=== PATIENT | male | born 1965 | race Caucasian/White ===

== ENCOUNTER 2023-09-02 08:58 | Inpatient (IN) ==
[2023-09-02 09:33] LABS: Base Excess VBG 4.7 mEq/L; HCO3 VBG 31 mmol/L; Oxygen Saturation VBG < 60.0 %; PCO2 VBG 54 mmHg (38-50); PO2 VBG < 20 mmHg; pH VBG 7.37 (7.36-7.41)
[2023-09-02] MEDS ORDERED: PIPERACILLIN/TAZOBACTAM 4.5 GM/100 ML BAG IV ONE (09:33)
[2023-09-02] MEDS ORDERED: VANCOMYCIN CONSULT ACTIVE PRN (09:33)
[2023-09-02] MEDS ORDERED: SODIUM CHLORIDE 0.9% 1,000 ML IV ONE ×2 (09:33→10:19)
[2023-09-02] MEDS ORDERED: VANCOMYCIN HCL 1,250 MG in SODIUM CHLORIDE 0.9% 500 ML IV ONE (09:33)
--- NOTE | 2023-09-02 09:36 | XRay Report ---
XR chest 1V portable CLINICAL HISTORY: Sepsis COMPARISON STUDY: Chest radiograph May 07, 2021. FINDINGS: No pneumothorax or pleural effusion is present. Cardiac size is normal. Mediastinal contour s are normal. Linear retrocardiac densities are noted. There may be subtle right upper lung airspace opacities. No evidence for overt pulmonary edema. Mild asymmetric interstitial thickening within the right lung is likely technical. IMPRESSION: 1. Possible subtle right upper lung airspace opacities and slight asymmetric interstitial thickening within the right lung. The findings are likely technical however an infectious process cannot be excl uded. Radiographic follow-up is recommended. 2. Linear retrocardiac opacities which favor atelectasis however can be assessed on follow-up chest r adiograph. ACT 112: Negative or not required by law. Electronically signed by: Shay Souza M.D. 09/02/2023 9:34 AM
--- NOTE | 2023-09-02 09:37 | CT Scan Report ---
CT OF THE HEAD WITHOUT CONTRAST CLINICAL HISTORY: Altered mental status. COMPARISON STUDY: No previous studies for comparison. CT DOSE: 1250.21 mGy.cm TECHNIQUE: Helical axial images of the head were obtained without IV contrast. Automated exposure con trol was utilized for the study. A dose lowering technique was utilized adhering to the principles o f ALARA. FINDINGS: This exam is mildly compromised by motion artifact. Multifocal white matter hypodensities a re present. No acute intracranial hemorrhage, midline shift or mass effect is present. The ventricula r system is unremarkable. The basal cisterns are patent. No extra-axial collections are present. Ther e are no findings to suggest acute dural sinus thrombosis or acute territorial infarct. No significan t calvarial abnormalities are present. Visualized portions of the sinuses and mastoid air cells are c lear. IMPRESSION: 1. No acute intracranial hemorrhage or mass effect. Exam mildly compromised by motion artifact. 2. Multifocal white matter hypodensities. These are nonspecific but statistically reflect small vesse l disease. ACT 112: Negative or not required by law. Electronically signed by: Shay Souza M.D. 09/02/2023 9:36 AM
--- NOTE | 2023-09-02 09:41 | Emergency Department Note ---
Impression & Plan Pneumonia, Hypoxia, Acute alteration in mental status, Hypomagnesemia ED Provider Note NAME: MARY LARA AGE: 58 SEX: M : 1965 ARRIVES VIA: Ambulance INFORMANT: Patient, EMS ED PROVIDER(S): Luisito Welch DO CHIEF COMPLAINT: Altered mental status HPI: The patient is a 58-year-old male who presented to the emergency department for an evaluation of altered mental status. The patient is currently at [facility] for inpatient rehab. The patient had a cardiac arrest and was at an outside facility. He had a subdural hematoma. The patient is a history of paroxysmal atrial fibrillation but has been off his blood thinners ever since the injury. He also has a history of diabetes. He was noted to have fever and low blood sugar over the course last 24 hours. He was sent to the emergency department from [facility] for further evaluation. The patient does not help very much with history and is not able to answer questions very well at this time. ROS: See above HPI for pertinent positives & negatives. A total of 10 systems reviewed and were otherwise negative. PAST MEDICAL HISTORY: See Below PAST SURGICAL HISTORY: See Below FAMILY HISTORY: See Below SOCIAL HISTORY: See Below HOME MEDICATIONS: See Below ALLERGIES: See Below VITALS: See Below PHYSICAL EXAMINATION: GENERAL: Patient is awake to loud verbal commands. He does not answer questions. He does not follow commands well. EYES: The conjunctivae are clear. The pupils are round and reactive. EARS, NOSE, MOUTH AND THROAT: The nose is without any evidence of any deformity. Mucous membranes are dry. NECK: The neck is nontender and supple. RESPIRATORY: Diminished breath sounds are noted in right lung field. There were rales in the right lung field. There is mild retractions noted. CARDIOVASCULAR: Regular rate and rhythm noted there no murmurs rubs or gallops normal S1 normal S2. GASTROINTESTINAL: The abdomen is soft. Abdomen is nontender. MUSCULOSKELETAL/EXTREMITIES: There is no evidence of gross deformity full range of motion is noted in the hips and shoulders. SKIN: Skin is warm and dry. There is no significant pedal edema NEUROLOGIC: Patient is awake to loud verbal commands. He does localize painful stimuli. He does not follow commands or answer questions. I cannot assess orientation at this time. MEDICAL DECISION MAKING: The patient is a 58-year-old male who presented to the emergency department from [facility] for an evaluation of altered mental status. The patient had a reported fever. He had episodes of hypotension. The patient appeared have signs of pneumonia on chest x-ray. This would fit his physical exam as well as his oxygen saturation. He was started on empiric antibiotics. He was also found to have urinary tract infection. He was treated with IV fluids. Blood pressure responded favorably. I discussed the patient's laboratory and radiographic studies [facility]. [facility] have agreed to evaluate the patient in the emergency department for further management and disposition. Triage Nursing notes reviewed. Prior medical records reviewed Vital Signs: reviewed and remarkable for initial hypotension and hypoxia. Differential diagnosis: Viral syndrome, otitis, pharyngitis, pneumonia, influenza, meningitis, urinary tract infection, sepsis, bacteremia, as well as other pathologies. ER treatment provided: See below Diagnostics interpreted by me: ECG: EKG was obtained in the emergency department. My interpretation is normal sinus rhythm at 99 bpm. Right bundle branch block pattern was noted. There is no ectopy. This was compared to a tracing from April 27, 2021. The bundle branch block is new. Cardiac Monitoring: An order was placed for continuous cardiac monitoring. The monitor shows a rate of 97 bpm with sinus rhythm. Laboratory studies: As stated above and show below. Imaging studies: See below. Radiographic imaging was reviewed by myself Consultation(s): I discussed this case with Lilly who [facility] ED COURSE: Procedures: none Critical Care: I have personally spent greater than 45 minutes of critical care time in the direct management of this patient. This includes bedside care, interpretation of diagnostic studies, and testing, discussion with consultants, patient, and family members, and other required patient management activities. This 45 minutes is in excess of all separately billable procedures. Past Med/Surg History Medical History Back pain Bilateral leg pain Diabetes mellitus Drug-seeking behavior Neuropathy Neuropathy Sciatica Spinal stenosis Surgical History History of back surgery S/P lumbar spine operation (01/17/15) Social History Smoking Status: Unknown if ever smoked Preferred Language: Ghanaian Feels Safe at Home: Yes Allergies Allergies Allergy/AdvReac Type Severity Reaction Status Date / Time ketorolac Allergy Severe seizure Verified 09/02/23 12:27 propoxyphene Allergy Severe didn't Verified 09/02/23 12:27 wake up until next day tramadol Allergy Severe seizure Verified 09/02/23 12:27 acetaminophen Allergy Unknown Unknown Unverified 09/02/23 12:27 [From Darvocet-N 100] meperidine Allergy Unknown loose bn Verified 09/02/23 12:27 oxycodone AdvReac Intermediate face Verified 09/02/23 12:27 blotchy, nausea Home Meds Home Medications Medication Instructions Recorded Confirmed insulin glargine 100 unit/mL (3 20 unit subcut QAM 04/27/21 09/02/23 mL) subcutaneous pen (Lantus Solostar U-100 Insulin) Dextrose D50 See Rx Instructions .Route .COMPLEX 09/02/23 09/02/23 acetaminophen 325 mg tablet 650 mg PO Q4H PRN Pain 09/02/23 09/02/23 (Tylenol) albuterol sulfate 90 mcg/actuation 2 inh inhalation Q6H PRN Wheezing 09/02/23 09/02/23 aerosol inhaler aspirin 81 mg chewable tablet 81 mg PO DAILY 09/02/23 09/02/23 bisacodyl 10 mg rectal suppository 10 mg MT DAILY PRN Constipation 09/02/23 09/02/23 cyanocobalamin (vitamin B-12) 1,000 mcg PO DAILY 09/02/23 09/02/23 1,000 mcg tablet (Vitamin B-12) dextrose 40 % oral gel (Glucose 1 ea PO ONCE PRN Hypoglycemia 09/02/23 09/02/23 Gel) docusate sodium 50 mg/5 mL oral 100 mg PO BID 09/02/23 09/02/23 liquid enoxaparin 40 mg/0.4 mL 40 mg subcut DAILY 09/02/23 09/02/23 subcutaneous syringe (Lovenox) folic acid 1 mg tablet 1 mg PO DAILY 09/02/23 09/02/23 gabapentin 800 mg tablet 800 mg PO QID 09/02/23 09/02/23 glucagon 1 mg solution for 1 mg subcut . INDICATED PRN 09/02/23 09/02/23 injection Hypoglycemia insulin regular human 100 unit/mL 1 sliding scale dose subcut 09/02/23 09/02/23 injection solution (Humulin R USEASDIRECTD Regular U-100 Insulin) levetiracetam 500 mg/5 mL (5 mL) 500 mg PO Q12H 09/02/23 09/02/23 oral solution losartan 25 mg tablet 25 mg PO DAILY 09/02/23 09/02/23 magnesium hydroxide 400 mg/5 mL 2,400 mg PO DAILY PRN Constipation 09/02/23 09/02/23 oral suspension (Milk of Magnesia) metoprolol tartrate 50 mg tablet 50 mg PO Q12H 09/02/23 09/02/23 ondansetron HCl 4 mg tablet 4 mg PO Q4H PRN nausea or vomiting 09/02/23 09/02/23 oxycodone 15 mg tablet 30 mg PO Q12H 09/02/23 09/02/23 polyethylene glycol 3350 17 gram 17 g PO .LUNCH TIME PRN 09/02/23 09/02/23 oral powder packet (Miralax) constipation sennosides 8.6 mg-docusate sodium 1 tab-cap PO .LUNCH TIME PRN 09/02/23 09/02/23 50 mg tablet (Senokot-S) Constipation sodium phosphates 19 gram-7 118 ml MT DAILY PRN Constipation 09/02/23 09/02/23 gram/118 mL enema (Fleet Enema) Previous Rx's Medication Instructions Recorded naloxone 4 mg/actuation nasal 1 spray intranasal DIRECTED #2 04/27/21 spray (Narcan) ea Results & Data (ED) Vital Signs Vital Signs - 24 hr 09/02/23 09:06 09/02/23 09:09 09/02/23 09:22 Temperature 37.5 C Temperature Source Oral Pulse Rate 103 H 100 H 105 H Pulse Rate [Right Finger] Respiratory Rate 14 18 Respiratory Effort / Characteristics Respiratory Depth Shallow Blood Pressure 116/68 Blood Pressure [Left Arm] Blood Pressure Mean 84 Blood Pressure Mean [Left Arm] Pulse Oximetry 95 94 Oxygen Delivery Method Nasal Cannula Nasal Cannula Oxygen Flow Rate 4 4 Sepsis New/Unexplained Change in Mental Status Yes Sepsis Action Taken by Nursing Physician Notified 09/02/23 09:45 09/02/23 09:55 09/02/23 10:00 Temperature Temperature Source Pulse Rate Pulse Rate [Right Finger] 99 H 94 H Respiratory Rate 16 12 Respiratory Effort / Characteristics Spontaneous Non-Labored Spontaneous Respiratory Depth Normal Normal Blood Pressure Blood Pressure [Left Arm] 90/62 L 96/66 L Blood Pressure Mean Blood Pressure Mean [Left Arm] 71 76 Pulse Oximetry 95 97 98 Oxygen Delivery Method Nasal Cannula Nasal Cannula Nasal Cannula Oxygen Flow Rate 4 4 4 Sepsis New/Unexplained Change in Mental Status Sepsis Action Taken by Nursing 09/02/23 10:15 09/02/23 10:30 Temperature Temperature Source Pulse Rate Pulse Rate [Right Finger] 93 H 93 H Respiratory Rate 12 14 Respiratory Effort / Characteristics Spontaneous Spontaneous Respiratory Depth Blood Pressure Blood Pressure [Left Arm] 103/75 90/63 L Blood Pressure Mean Blood Pressure Mean [Left Arm] 84 72 Pulse Oximetry 98 98 Oxygen Delivery Method Nasal Cannula Nasal Cannula Oxygen Flow Rate 4 4 Sepsis New/Unexplained Change in Mental Status Sepsis Action Taken by [facility] Medications Current Medication List: was personally reviewed by me Laboratory Data Attestation: I reviewed the patient's lab results. 09/02/23 09:13 09/02/23 09:13 Lab Results 09/02/23 09/02/23 09/02/23 Range/Units 09:03 09:13 09:13 WBC 14.56 H (4.8-10.8) K/ul RBC 2.83 L (4.70-6.10) M/uL Hgb 10.9 L (14.0-18.0) g/dl Hct 28.7 L (42.0-52.0) % MCV 101.4 H (80.0-100.0) fL MCH 38.5 H (25.0-34.0) pg MCHC 38.0 H (32.0-36.0) g/dL RDW Std Deviation 46.6 H (36.4-46.3) fL RDW Coeff of Kaelyn 14.5 (11.5-14.5) % Plt Count 382 (130-400) K/uL MPV 10.7 (9.4-12.4) fL Immature Gran % (Auto) 0.5 % Neut % (Auto) 80.4 % Lymph % (Auto) 11.3 % [place] % (Auto) 6.9 % Eos % (Auto) 0.2 % Baso % (Auto) 0.7 % Neut # (Auto) 11.72 H (1.40-6.50) K/uL Lymph # (Auto) 1.64 (1.20-3.40) K/uL [place] # (Auto) 1.00 H (0.11-0.59) K/uL Eos # (Auto) 0.03 (0.00-0.50) K/uL Baso # (Auto) 0.10 (0.00-0.20) K/uL Immature Gran # (Auto) 0.07 (0.01-0.20) K/uL Stomatocytes 1+ PT 11.5 (9.0-12.0) Seconds INR 1.1 (0.9-1.1) APTT 25.3 (21.0-31.0) Seconds PTT Ratio 0.9 VBG pH (7.36-7.41) VBG pCO2 (38-50) mmHg VBG pO2 mmHg VBG HCO3 mmol/L VBG O2 Saturation % VBG Base Excess mEq/L Sodium (136-145) mmol/L Potassium (3.5-5.1) mmol/L Chloride (98-107) mmol/L Carbon Dioxide (21-32) mmol/L Anion Gap (3-11) BUN (6-23) mg/dl Creatinine (0.6-1.4) mg/dl Est Cr Clr Drug Dosing ml/min Est GFR ( Amer) ml/min Est GFR (Non-Af Amer) ml/min BUN/Creatinine Ratio (10-20) Glucose (70-99(Fasting)) mg/dl POC Glucose 112 H (70-99) mg/dl Lactate (0.4-2.0) mmol/L Calcium (8.6-10.3) mg/dl Magnesium (1.7-2.4) mg/dl Total Bilirubin (0.2-1.0) mg/dl Direct Bilirubin (0-0.2) mg/dl AST (13-39) U/L ALT (7-52) U/L Alkaline Phosphatase (34-104) U/L Troponin I High Sens (0-20) pg/ml B-Natriuretic Peptide (0-100) pg/ml Total Protein (6.0-8.3) gm/dl Albumin (3.4-5.0) gm/dl Procalcitonin (0-0.5) ng/ml Urine Color Urine Appearance (Clear) Urine pH (4.5-7.5) Ur Specific [place] (1.000-1.030) Urine Protein (Negative) Urine Glucose (UA) (Negative) Urine Ketones (Negative) Urine Blood (Negative) Urine Nitrite (Negative) Urine Bilirubin (Negative) Urine Urobilinogen (Negative) Ur Leukocyte Esterase (Negative) Urine WBC (Auto) (0-5) /hpf Urine RBC (Auto) (0-4) /hpf U Hyaline Cast (Auto) (0-5) /lpf U Epithel Cells (Auto) (0-5) /lpf Urine Bacteria (Auto) (Negative) Urine Yeast (None Prsent) Adenovirus (PCR) (NotDetected) B. pertussis DNA (PCR) (NotDetected) B.parapertussis DNA PCR (NotDetected) C. pneumoniae DNA (PCR) (NotDetected) Coronavirus OC43 (PCR) (NotDetected) Coronavirus HKU1 (PCR) (NotDetected) Coronavirus 229E (PCR) (NotDetected) SARS-CoV-2 (PCR) (NotDetected) Coronavirus NL63 (PCR) (NotDetected) Human Metapneumovir PCR (NotDetected) Influenza Type A (PCR) (NotDetected) Influenza Type B (PCR) (NotDetected) M. pneumoniae (PCR) (NotDetected) Parainfluenza 1 (PCR) (NotDetected) Parainfluenza 2 (PCR) (NotDetected) Parainfluenza 3 (PCR) (NotDetected) Parainfluenza 4 (PCR) (NotDetected) RSV (PCR) (NotDetected) Entero/Rhino (PCR) (NotDetected) 09/02/23 09/02/23 09/02/23 Range/Units 09:13 09:13 09:13 WBC (4.8-10.8) K/ul RBC (4.70-6.10) M/uL Hgb (14.0-18.0) g/dl Hct (42.0-52.0) % MCV (80.0-100.0) fL MCH (25.0-34.0) pg MCHC (32.0-36.0) g/dL RDW Std Deviation (36.4-46.3) fL RDW Coeff of Kaelyn (11.5-14.5) % Plt Count (130-400) K/uL MPV (9.4-12.4) fL Immature Gran % (Auto) % Neut % (Auto) % Lymph % (Auto) % [place] % (Auto) % Eos % (Auto) % Baso % (Auto) % Neut # (Auto) (1.40-6.50) K/uL Lymph # (Auto) (1.20-3.40) K/uL [place] # (Auto) (0.11-0.59) K/uL Eos # (Auto) (0.00-0.50) K/uL Baso # (Auto) (0.00-0.20) K/uL Immature Gran # (Auto) (0.01-0.20) K/uL Stomatocytes PT (9.0-12.0) Seconds INR (0.9-1.1) APTT (21.0-31.0) Seconds PTT Ratio VBG pH (7.36-7.41) VBG pCO2 (38-50) mmHg VBG pO2 mmHg VBG HCO3 mmol/L VBG O2 Saturation % VBG Base Excess mEq/L Sodium 137 (136-145) mmol/L Potassium 4.8 (3.5-5.1) mmol/L Chloride 103 (98-107) mmol/L Carbon Dioxide 29 (21-32) mmol/L Anion Gap 5 (3-11) BUN 32 H (6-23) mg/dl Creatinine 1.20 (0.6-1.4) mg/dl Est Cr Clr Drug Dosing 55.6 ml/min Est GFR ( Amer) 75.7 ml/min Est GFR (Non-Af Amer) 65.3 ml/min BUN/Creatinine Ratio 26.7 H (10-20) Glucose 104 H (70-99(Fasting)) mg/dl POC Glucose (70-99) mg/dl Lactate (0.4-2.0) mmol/L Calcium 9.3 (8.6-10.3) mg/dl Magnesium 1.6 L (1.7-2.4) mg/dl Total Bilirubin 0.7 (0.2-1.0) mg/dl Direct Bilirubin 0.3 H (0-0.2) mg/dl AST 39 (13-39) U/L ALT 32 (7-52) U/L Alkaline Phosphatase 318 H (34-104) U/L Troponin I High Sens 17.3 (0-20) pg/ml B-Natriuretic Peptide 62 (0-100) pg/ml Total Protein 8.0 (6.0-8.3) gm/dl Albumin 4.0 (3.4-5.0) gm/dl Procalcitonin 0.42 (0-0.5) ng/ml Urine Color Urine Appearance (Clear) Urine pH (4.5-7.5) Ur Specific [place] (1.000-1.030) Urine Protein (Negative) Urine Glucose (UA) (Negative) Urine Ketones (Negative) Urine Blood (Negative) Urine Nitrite (Negative) Urine Bilirubin (Negative) Urine Urobilinogen (Negative) Ur Leukocyte Esterase (Negative) Urine WBC (Auto) (0-5) /hpf Urine RBC (Auto) (0-4) /hpf U Hyaline Cast (Auto) (0-5) /lpf U Epithel Cells (Auto) (0-5) /lpf Urine Bacteria (Auto) (Negative) Urine Yeast (None Prsent) Adenovirus (PCR) (NotDetected) B. pertussis DNA (PCR) (NotDetected) B.parapertussis DNA PCR (NotDetected) C. pneumoniae DNA (PCR) (NotDetected) Coronavirus OC43 (PCR) (NotDetected) Coronavirus HKU1 (PCR) (NotDetected) Coronavirus 229E (PCR) (NotDetected) SARS-CoV-2 (PCR) (NotDetected) Coronavirus NL63 (PCR) (NotDetected) Human Metapneumovir PCR (NotDetected) Influenza Type A (PCR) (NotDetected) Influenza Type B (PCR) (NotDetected) M. pneumoniae (PCR) (NotDetected) Parainfluenza 1 (PCR) (NotDetected) Parainfluenza 2 (PCR) (NotDetected) Parainfluenza 3 (PCR) (NotDetected) Parainfluenza 4 (PCR) (NotDetected) RSV (PCR) (NotDetected) Entero/Rhino (PCR) (NotDetected) 09/02/23 09/02/23 09/02/23 Range/Units 09:14 09:14 09:14 WBC (4.8-10.8) K/ul RBC (4.70-6.10) M/uL Hgb (14.0-18.0) g/dl Hct (42.0-52.0) % MCV (80.0-100.0) fL MCH (25.0-34.0) pg MCHC (32.0-36.0) g/dL RDW Std Deviation (36.4-46.3) fL RDW Coeff of Kaelyn (11.5-14.5) % Plt Count (130-400) K/uL MPV (9.4-12.4) fL Immature Gran % (Auto) % Neut % (Auto) % Lymph % (Auto) % [place] % (Auto) % Eos % (Auto) % Baso % (Auto) % Neut # (Auto) (1.40-6.50) K/uL Lymph # (Auto) (1.20-3.40) K/uL [place] # (Auto) (0.11-0.59) K/uL Eos # (Auto) (0.00-0.50) K/uL Baso # (Auto) (0.00-0.20) K/uL Immature Gran # (Auto) (0.01-0.20) K/uL Stomatocytes PT (9.0-12.0) Seconds INR (0.9-1.1) APTT (21.0-31.0) Seconds PTT Ratio VBG pH 7.37 (7.36-7.41) VBG pCO2 54 H (38-50) mmHg VBG pO2 < 20 mmHg VBG HCO3 31 mmol/L VBG O2 Saturation < 60.0 % VBG Base Excess 4.7 mEq/L Sodium (136-145) mmol/L Potassium (3.5-5.1) mmol/L Chloride (98-107) mmol/L Carbon Dioxide (21-32) mmol/L Anion Gap (3-11) BUN (6-23) mg/dl Creatinine (0.6-1.4) mg/dl Est Cr Clr Drug Dosing ml/min Est GFR ( Amer) ml/min Est GFR (Non-Af Amer) ml/min BUN/Creatinine Ratio (10-20) Glucose (70-99(Fasting)) mg/dl POC Glucose (70-99) mg/dl Lactate 1.8 (0.4-2.0) mmol/L Calcium (8.6-10.3) mg/dl Magnesium (1.7-2.4) mg/dl Total Bilirubin (0.2-1.0) mg/dl Direct Bilirubin (0-0.2) mg/dl AST (13-39) U/L ALT (7-52) U/L Alkaline Phosphatase (34-104) U/L Troponin I High Sens (0-20) pg/ml B-Natriuretic Peptide (0-100) pg/ml Total Protein (6.0-8.3) gm/dl Albumin (3.4-5.0) gm/dl Procalcitonin (0-0.5) ng/ml Urine Color Urine Appearance (Clear) Urine pH (4.5-7.5) Ur Specific [place] (1.000-1.030) Urine Protein (Negative) Urine Glucose (UA) (Negative) Urine Ketones (Negative) Urine Blood (Negative) Urine Nitrite (Negative) Urine Bilirubin (Negative) Urine Urobilinogen (Negative) Ur Leukocyte Esterase (Negative) Urine WBC (Auto) (0-5) /hpf Urine RBC (Auto) (0-4) /hpf U Hyaline Cast (Auto) (0-5) /lpf U Epithel Cells (Auto) (0-5) /lpf Urine Bacteria (Auto) (Negative) Urine Yeast (None Prsent) Adenovirus (PCR) Not Detected (NotDetected) B. pertussis DNA (PCR) Not Detected (NotDetected) B.parapertussis DNA PCR Not Detected (NotDetected) C. pneumoniae DNA (PCR) Not Detected (NotDetected) Coronavirus OC43 (PCR) Not Detected (NotDetected) Coronavirus HKU1 (PCR) Not Detected (NotDetected) Coronavirus 229E (PCR) Not Detected (NotDetected) SARS-CoV-2 (PCR) Not Detected (NotDetected) Coronavirus NL63 (PCR) Not Detected (NotDetected) Human Metapneumovir PCR Not Detected (NotDetected) Influenza Type A (PCR) Not Detected (NotDetected) Influenza Type B (PCR) Not Detected (NotDetected) M. pneumoniae (PCR) Not Detected (NotDetected) Parainfluenza 1 (PCR) Not Detected (NotDetected) Parainfluenza 2 (PCR) Not Detected (NotDetected) Parainfluenza 3 (PCR) Not Detected (NotDetected) Parainfluenza 4 (PCR) Not Detected (NotDetected) RSV (PCR) Not Detected (NotDetected) Entero/Rhino (PCR) Not Detected (NotDetected) 09/02/23 Range/Units 09:27 WBC (4.8-10.8) K/ul RBC (4.70-6.10) M/uL Hgb (14.0-18.0) g/dl Hct (42.0-52.0) % MCV (80.0-100.0) fL MCH (25.0-34.0) pg MCHC (32.0-36.0) g/dL RDW Std Deviation (36.4-46.3) fL RDW Coeff of Kaelyn (11.5-14.5) % Plt Count (130-400) K/uL MPV (9.4-12.4) fL Immature Gran % (Auto) % Neut % (Auto) % Lymph % (Auto) % [place] % (Auto) % Eos % (Auto) % Baso % (Auto) % Neut # (Auto) (1.40-6.50) K/uL Lymph # (Auto) (1.20-3.40) K/uL [place] # (Auto) (0.11-0.59) K/uL Eos # (Auto) (0.00-0.50) K/uL Baso # (Auto) (0.00-0.20) K/uL Immature Gran # (Auto) (0.01-0.20) K/uL Stomatocytes PT (9.0-12.0) Seconds INR (0.9-1.1) APTT (21.0-31.0) Seconds PTT Ratio VBG pH (7.36-7.41) VBG pCO2 (38-50) mmHg VBG pO2 mmHg VBG HCO3 mmol/L VBG O2 Saturation % VBG Base Excess mEq/L Sodium (136-145) mmol/L Potassium (3.5-5.1) mmol/L Chloride (98-107) mmol/L Carbon Dioxide (21-32) mmol/L Anion Gap (3-11) BUN (6-23) mg/dl Creatinine (0.6-1.4) mg/dl Est Cr Clr Drug Dosing ml/min Est GFR ( Amer) ml/min Est GFR (Non-Af Amer) ml/min BUN/Creatinine Ratio (10-20) Glucose (70-99(Fasting)) mg/dl POC Glucose (70-99) mg/dl Lactate (0.4-2.0) mmol/L Calcium (8.6-10.3) mg/dl Magnesium (1.7-2.4) mg/dl Total Bilirubin (0.2-1.0) mg/dl Direct Bilirubin (0-0.2) mg/dl AST (13-39) U/L ALT (7-52) U/L Alkaline Phosphatase (34-104) U/L Troponin I High Sens (0-20) pg/ml B-Natriuretic Peptide (0-100) pg/ml Total Protein (6.0-8.3) gm/dl Albumin (3.4-5.0) gm/dl Procalcitonin (0-0.5) ng/ml Urine Color Yellow Urine Appearance Cloudy A (Clear) Urine pH 5.5 (4.5-7.5) Ur Specific [place] 1.017 (1.000-1.030) Urine Protein Negative (Negative) Urine Glucose (UA) Negative (Negative) Urine Ketones Negative (Negative) Urine Blood Trace H (Negative) Urine Nitrite Negative (Negative) Urine Bilirubin Negative (Negative) Urine Urobilinogen Negative (Negative) Ur Leukocyte Esterase 3+ H (Negative) Urine WBC (Auto) >30 H (0-5) /hpf Urine RBC (Auto) 0-4 (0-4) /hpf U Hyaline Cast (Auto) 1-5 (0-5) /lpf U Epithel Cells (Auto) 5-10 H (0-5) /lpf Urine Bacteria (Auto) Negative (Negative) Urine Yeast Budding A (None Prsent) Adenovirus (PCR) (NotDetected) B. pertussis DNA (PCR) (NotDetected) B.parapertussis DNA PCR (NotDetected) C. pneumoniae DNA (PCR) (NotDetected) Coronavirus OC43 (PCR) (NotDetected) Coronavirus HKU1 (PCR) (NotDetected) Coronavirus 229E (PCR) (NotDetected) SARS-CoV-2 (PCR) (NotDetected) Coronavirus NL63 (PCR) (NotDetected) Human Metapneumovir PCR (NotDetected) Influenza Type A (PCR) (NotDetected) Influenza Type B (PCR) (NotDetected) M. pneumoniae (PCR) (NotDetected) Parainfluenza 1 (PCR) (NotDetected) Parainfluenza 2 (PCR) (NotDetected) Parainfluenza 3 (PCR) (NotDetected) Parainfluenza 4 (PCR) (NotDetected) RSV (PCR) (NotDetected) Entero/Rhino (PCR) (NotDetected) Administered Medications Sodium Chloride (Nss) 1,000 mls @ 80 mls/hr IV .[id number] JOSÉ MIGUEL Stop: 09/03/23 12:44 Last Admin: 09/02/23 12:17 Dose: 80 mls/hr Documented By: WALT Discontinued Medications Sodium Chloride (Nss) 1,000 mls @ 999 mls/hr IV .Q1H1M ONE Stop: 09/02/23 10:33 Last Infusion: 09/02/23 11:26 Dose: 0 mls/hr Documented By: Admin: 09/02/23 09:48 Dose: 999 mls/hr Documented By: WALT Piperacillin Sod/Tazobactam Sod (Zosyn) 4.5 gm in 100 mls @ 200 mls/hr IV NOW ONE Stop: 09/02/23 10:02 Last Infusion: 09/02/23 10:38 Dose: 0 mls/hr Documented By: Admin: 09/02/23 10:04 Dose: 200 mls/hr Documented By: WALT Vancomycin HCl 1,250 mg/ (Sodium Chloride) 525 mls @ 200 mls/hr IV NOW ONE Stop: 09/02/23 12:10 Last Admin: 09/02/23 09:49 Dose: 200 mls/hr Documented By: WALT Magnesium Sulfate/Dextrose (Magnesium Sulfate / D5w) 1 gm in 100 mls @ 100 mls/hr IV NOW STA Stop: 09/02/23 11:19 Last Infusion: 09/02/23 11:46 Dose: 0 mls/hr Documented By: Admin: 09/02/23 10:33 Dose: 100 mls/hr Documented By: WALT Sodium Chloride (Nss) 1,000 mls @ 999 mls/hr IV .Q1H1M ONE Stop: 09/02/23 11:19 Last Infusion: 09/02/23 12:14 Dose: 0 mls/hr Documented By: Admin: 09/02/23 10:37 Dose: 999 mls/hr Documented By: WALT Imaging Data Attestation: I personally reviewed and interpreted this imaging study as follows: My Impression: 1 view chest x-ray was obtained in the emergency department. My interpretation is atelectasis with infiltrate at the right lung field. Final report below. Radiologist's Impression: Chest X-Ray 09/02/23 09:06 XR chest 1V portable CLINICAL HISTORY: Sepsis COMPARISON STUDY: Chest radiograph May 07, 2021. FINDINGS: No pneumothorax or pleural effusion is present. Cardiac size is normal. Mediastinal contours are normal. Linear retrocardiac densities are noted. There may be subtle right upper lung airspace opacities. No evidence for overt pulmonary edema. Mild asymmetric interstitial thickening within the right lung is likely technical. IMPRESSION: 1. Possible subtle right upper lung airspace opacities and slight asymmetric interstitial thickening within the right lung. The findings are likely technical however an infectious process cannot be excluded. Radiographic follow-up is recommended. 2. Linear retrocardiac opacities which favor atelectasis however can be assessed on follow-up chest radiograph. ACT 112: Negative or not required by law. Electronically signed by: Shay Souza M.D. 09/02/2023 9:[address] 09/02/23 09:06 CT OF THE HEAD WITHOUT CONTRAST CLINICAL HISTORY: Altered mental status. COMPARISON STUDY: No previous studies for comparison. CT DOSE: 1250.21 mGy.cm TECHNIQUE: Helical axial images of the head were obtained without IV contrast. Automated exposure control was utilized for the study. A dose lowering [place] was utilized adhering to the principles of ALARA. FINDINGS: This exam is mildly compromised by motion artifact. Multifocal white matter hypodensities are present. No acute intracranial hemorrhage, midline shift or mass effect is present. The ventricular system is unremarkable. The basal cisterns are patent. No extra-axial collections are present. There are no findings to suggest acute dural sinus thrombosis or acute territorial infarct. No significant calvarial abnormalities are present. Visualized portions of the sinuses and mastoid air cells are clear. IMPRESSION: 1. No acute intracranial hemorrhage or mass effect. Exam mildly compromised by motion artifact. 2. Multifocal white matter hypodensities. These are nonspecific but statistically reflect small vessel disease. ACT 112: Negative or not required by law. Electronically signed by: Shay Souza M.D. 09/02/2023 9:36 AM Discharge Plan Visit Data Chief Complaint: Altered Mental Status Stated Complaint: LETHARGIC ED Provider: Luisito Welch Discharge Problem: Pneumonia, Hypoxia, Acute alteration in mental status, Hypomagnesemia Patient Disposition: Admitted As Inpatient Discharge Instructions Interventions: ED Discharge Assessment Last Done: 09/02/23 13:12 Pneumonia Qualifiers: Pneumonia type: due to unspecified organism Laterality: right Lung location: unspecified part of lung Qualified Code(s): J18.9 - Pneumonia, unspecified organism
[2023-09-02 10:00] LABS: Appearance Urine Cloudy (Clear); Bacteria Urine Automated Negative (Negative); Bilirubin Urine Negative (Negative); Blood Urine Trace (Negative); Color Urine Yellow; Glucose Urine UA Negative (Negative); Ketones Urine Negative (Negative); Leukocyte Esterase Urine 3+ (Negative); Nitrite Urine Negative (Negative); Protein Urine Negative (Negative); Specific Gravity Urine 1.017 (1.000-1.030); Urobilinogen Urine Negative (Negative); WBC Urine Automated >30 /hpf (0-5); pH Urine 5.5 (4.5-7.5)
[2023-09-02 10:03] LABS: Basophils % (auto) 0.7 %; Eosinophils # (auto) 0.03 K/uL (0.00-0.50); Eosinophils % (auto) 0.2 %; Hematocrit (blood only) 28.7 % (42.0-52.0); Hemoglobin 10.9 g/dl (14.0-18.0); Immature Granulocytes # (auto) 0.07 K/uL (0.01-0.20); Immature Granulocytes % (auto) 0.5 %; Lymphocytes # (auto) 1.64 K/uL (1.20-3.40); Lymphocytes % (auto) 11.3 %; Mean Corpuscular Hemoglobin 38.5 pg (25.0-34.0); Mean Corpuscular Volume 101.4 fL (80.0-100.0); Mean Platelet Volume 10.7 fL (9.4-12.4); Monocytes % (auto) 6.9 %; Neutrophils # (auto) 11.72 K/uL (1.40-6.50); Neutrophils % (auto) 80.4 %; Platelet Count 382 K/uL (130-400); RDW Coefficient of Variation 14.5 % (11.5-14.5); RDW Standard Deviation 46.6 fL (36.4-46.3); Red Blood Count 2.83 M/uL (4.70-6.10); Stomatocytes 1+; White Blood Count 14.56 K/ul (4.8-10.8)
[2023-09-02 10:06] LABS: BUN Creatinine Ratio 26.7 (10-20); Bilirubin Direct 0.3 mg/dl (0-0.2); Bilirubin,Total 0.7 mg/dl (0.2-1.0); Calcium 9.3 mg/dl (8.6-10.3); Creatinine Clr Calc Pharmacy 55.6 ml/min; Est GFR (African American) 75.7 ml/min; Est GFR (Non-African American) 65.3 ml/min; Magnesium 1.6 mg/dl (1.7-2.4); Potassium 4.8 mmol/L (3.5-5.1)
[2023-09-02 10:07] LABS: INR 1.1 (0.9-1.1); Partial Thromboplastin Ratio 0.9; Partial Thromboplastin Time 25.3 Seconds (21.0-31.0); Prothrombin Time 11.5 Seconds (9.0-12.0); Troponin I High Sensitivity 17.3 pg/ml (0-20)
[2023-09-02 10:20] LABS: RBC Urine Automated 0-4 /hpf (0-4)
[2023-09-02] MEDS ORDERED: MAGNESIUM SULFATE / D5W 1 GM/100 ML BAG IV STA (10:20)
[2023-09-02 10:26] LABS: Adenovirus PCR Not Detected (NotDetected); Bordetella parapertussis PCR Not Detected (NotDetected); Bordetella pertussis PCR Not Detected (NotDetected); Chlamydia pneumoniae PCR Not Detected (NotDetected); Coronavirus 229E PCR Not Detected (NotDetected); Coronavirus CoV-2 (COVID19)PCR Not Detected (NotDetected); Coronavirus HKU1 PCR Not Detected (NotDetected); Coronavirus NL63 PCR Not Detected (NotDetected); Coronavirus OC43PCR Not Detected (NotDetected); Human Metapneumovirus PCR Not Detected (NotDetected); Influenza A PCR Not Detected (NotDetected); Influenza B PCR Not Detected (NotDetected); Mycoplasma pneumoniae PCR Not Detected (NotDetected); Parainfluenza Virus 1 PCR Not Detected (NotDetected); Parainfluenza Virus 2 PCR Not Detected (NotDetected); Parainfluenza Virus 3 PCR Not Detected (NotDetected); Parainfluenza Virus 4 PCR Not Detected (NotDetected); Respiratory Syncytial VirusPCR Not Detected (NotDetected); Rhinovirus/Enterovirus PCR Not Detected (NotDetected)
--- NOTE | 2023-09-02 11:40 | History & Physical Report ---
Date of Service September 02, 2023 Assessment & Plan (1) Pneumonia: Plan: This is a 58 y/o male with recent cardiac arrest, CVA, SDH, shock liver, atypical pneumonia and MIKE and a history of DM2, alcohol abuse, chronic pain w/ opioid dependence, COPD, afib, and HFpEF who was sent to the ED from [facility] due to increased lethargy, episode of hypoglycemia, and reported fever. Clinical picture is most consistent with pneumonia as the cause of his lethargy - abnormal chest x-ray, leukocytosis, abnormal lung exam, cough. - Admit to PCU - Broad-spectrum IV antibiotics with Vanco and Zosyn, particularly in view of recent prolonged ICU stay putting him at risk for HAP - check MRSA swab, blood cultures are pending - Continue O2 titrated to maintain pulseox >92% - Hypomagnesemia on initial labs - ED repleted, recheck in AM - CBC, BMP, LFTs in AM - Continue NPO for now due to concern for aspiration with lethargy, aspiration precautions once able to take po - will see if patient can tolerate more critical oral meds such as Keppra and beta kevan but may need to consider IV if mental status worsening or unable to tolerate safely - Insulin sliding scale per protocol - will defer basal insulin for now due to episode of hypoglycemia this AM - Gentle IVF at 80 cc/hr for two more liters - Will put in for a sputum culture although pt may not be able to provide a sample at this point (2) Hypoxia: (3) Acute alteration in mental status: (4) Hypomagnesemia: (5) Diabetes mellitus: (6) Alcohol abuse: (7) Opioid dependence: (8) History of subdural hematoma: Plan Pt seen and reviewed with collaborating physician, Dr. Moctezuma. Plan of care discussed and as outlined above,. Code Status: DNR per [facility] DVT Prophylaxis: has been tolerating Lovenox at [facility] so will continue Weston De Jesus PA-C History of Present Illness Chief Complaint: Lethargy [facility] This is a 58 y/o male with recent cardiac arrest, CVA, SDH, shock liver, atypical pneumonia and MIKE and a history of DM2, alcohol abuse, chronic pain w/ opioid dependence, COPD, afib, and HFpEF who was sent to the ED from [facility] due to increased lethargy, episode of hypoglycemia, and reported fever. Pt is unable to provide any history so the records from [facility] were extensively reviewed. Pt reportedly presented to the [facility] on 08/10/23 after cardiac arrest in the field, achieved ROSC with two rounds of CPR. Work-up revealed shock liver (AST 7200, ALT 1700), MIKE, SDH, atypical pneumonia, and bilateral multifocal infarcts of the brain. He had a complicated three week ICU course where he was initially on pressors but was weaned off, was given IV antibiotics including a full course for aspiration pneumonia, and was evaluated by neuro and started on Keppra for seizure prophylaxis. Urine drug screen was positive for opiates and methamphetamine. He was given narcan x 1 dose but only transient response so it was unclear how much the opiates contributed to his condition - of note, pt is on chronic oxycodone. Pt was previously on Eliquis for PAF but this is currently on hold due to SDH. He was ultimately diagnosed with critical illness myopathy and transferred to [facility] for inpatient rehab on 08/29. Since being at [facility], they have noted progressive lethargy. Early this morning, he had an episode of hypoglycemia (BSG 50) and reportedly developed a fever so was referred to the ED for additional evaluation. He has not been feb rile in the ED. Allergies Allergy/AdvReac Type Severity Reaction Status Date / Time ketorolac Allergy Severe seizure Verified 09/02/23 12:27 propoxyphene Allergy Severe didn't Verified 09/02/23 12:27 wake up until next day tramadol Allergy Severe seizure Verified 09/02/23 12:27 acetaminophen Allergy Unknown Unknown Unverified 09/02/23 12:27 [From Darvocet-N 100] meperidine Allergy Unknown loose bn Verified 09/02/23 12:27 oxycodone AdvReac Intermediate face Verified 09/02/23 12:27 blotchy, nausea Home Medications Medication Instructions Recorded Confirmed Type insulin glargine 100 unit/mL (3 20 unit subcut QAM 04/27/21 09/02/23 History mL) subcutaneous pen (Lantus Solostar U-100 Insulin) naloxone 4 mg/actuation nasal 1 spray intranasal DIRECTED #2 04/27/21 09/02/23 Rx spray (Narcan) ea Dextrose D50 See Rx Instructions .Route .COMPLEX 09/02/23 09/02/23 History acetaminophen 325 mg tablet 650 mg PO Q4H PRN Pain 09/02/23 09/02/23 History (Tylenol) albuterol sulfate 90 mcg/actuation 2 inh inhalation Q6H PRN Wheezing 09/02/23 09/02/23 History aerosol inhaler aspirin 81 mg chewable tablet 81 mg PO DAILY 09/02/23 09/02/23 History bisacodyl 10 mg rectal suppository 10 mg VT DAILY PRN Constipation 09/02/23 09/02/23 History cyanocobalamin (vitamin B-12) 1,000 mcg PO DAILY 09/02/23 09/02/23 History 1,000 mcg tablet (Vitamin B-12) dextrose 40 % oral gel (Glucose 1 ea PO ONCE PRN Hypoglycemia 09/02/23 09/02/23 History Gel) docusate sodium 50 mg/5 mL oral 100 mg PO BID 09/02/23 09/02/23 History liquid enoxaparin 40 mg/0.4 mL 40 mg subcut DAILY 09/02/23 09/02/23 History subcutaneous syringe (Lovenox) folic acid 1 mg tablet 1 mg PO DAILY 09/02/23 09/02/23 History gabapentin 800 mg tablet 800 mg PO QID 09/02/23 09/02/23 History glucagon 1 mg solution for 1 mg subcut . INDICATED PRN 09/02/23 09/02/23 History injection Hypoglycemia insulin regular human 100 unit/mL 1 sliding scale dose subcut 09/02/23 09/02/23 History injection solution (Humulin R USEASDIRECTD Regular U-100 Insulin) levetiracetam 500 mg/5 mL (5 mL) 500 mg PO Q12H 09/02/23 09/02/23 History oral solution losartan 25 mg tablet 25 mg PO DAILY 09/02/23 09/02/23 History magnesium hydroxide 400 mg/5 mL 2,400 mg PO DAILY PRN Constipation 09/02/23 09/02/23 History oral suspension (Milk of Magnesia) metoprolol tartrate 50 mg tablet 50 mg PO Q12H 09/02/23 09/02/23 History ondansetron HCl 4 mg tablet 4 mg PO Q4H PRN nausea or vomiting 09/02/23 09/02/23 History oxycodone 15 mg tablet 30 mg PO Q12H 09/02/23 09/02/23 History polyethylene glycol 3350 17 gram 17 g PO .LUNCH TIME PRN 09/02/23 09/02/23 History oral powder packet (Miralax) constipation sennosides 8.6 mg-docusate sodium 1 tab-cap PO .LUNCH TIME PRN 09/02/23 09/02/23 History 50 mg tablet (Senokot-S) Constipation sodium phosphates 19 gram-7 118 ml VT DAILY PRN Constipation 09/02/23 09/02/23 History gram/118 mL enema (Fleet Enema) Past Med/Surg History Medical History (Updated 09/02/23 @ 18:57 by Felicity De Jesus PA-C) (HFpEF) heart failure with preserved ejection fraction Back pain Bilateral leg pain COPD (chronic obstructive pulmonary disease) Diabetes mellitus Drug-seeking behavior History of cardiac arrest History of CVA (cerebrovascular accident) Neuropathy Neuropathy Paroxysmal atrial fibrillation Sciatica Shock liver Spinal stenosis Surgical History History of back surgery S/P lumbar spine operation (01/17/15) Social History Smoking Status: Unknown if ever smoked Preferred Language: Bulgarian Photographer Motion Picture Required: No Current Living Situation: Rehab Feels Safe at Home: Yes Assistive Devices: Oxygen - Continuous Review of Systems Review of Systems: Unobtainable due to cognitive status Physical Exam Constitutional: + lethargic; no acute distress Eyes: + anicteric sclerae Neck: trachea midline Respiratory: no respiratory distress and no labored breathing Auscultation: + diminished lung sounds and + crackles (coarse throughout) Cardiovascular: Rate/Rhythm: regular rhythm and + tachycardic Vessels: radial pulses present Extremities: no pedal edema Gastrointestinal (Abdomen): Inspection/Auscultation: normal bowel sounds; abdomen not distended Percussion/Palpation: abdomen soft Skin: no jaundice Neurologic: moves all extremities drowsy but arouses to verbal stimuli, minimally verbal, generalized weakness Results & Data Results & Data Vital Signs (Past 12 Hours) Vital Signs Temp Pulse Pulse Resp BP BP Pulse Ox 09/02/23 11:15 98 H 16 125/76 100 09/02/23 11:00 99 H 16 131/66 95 09/02/23 10:30 93 H 14 90/63 L 98 09/02/23 10:15 93 H 12 103/75 98 09/02/23 10:00 94 H 12 96/66 L 98 09/02/23 09:55 97 09/02/23 09:45 99 H 16 90/62 L 95 09/02/23 09:22 105 H 18 94 09/02/23 09:09 100 H 09/02/23 09:06 37.5 C 103 H 14 116/68 95 O2 Del Method O2 Flow Rate 09/02/23 11:15 Nasal Cannula 4 09/02/23 11:00 Nasal Cannula 4 09/02/23 10:30 Nasal Cannula 4 09/02/23 10:15 Nasal Cannula 4 09/02/23 10:00 Nasal Cannula 4 09/02/23 09:55 Nasal Cannula 4 09/02/23 09:45 Nasal Cannula 4 09/02/23 09:22 Nasal Cannula 4 09/02/23 09:09 09/02/23 09:06 Nasal Cannula 4 Laboratory Results Laboratory Results - last 24 hr 09/02/23 09/02/23 09/02/23 09:03 09:13 09:13 WBC 14.56 H RBC 2.83 L Hgb 10.9 L Hct 28.7 L MCV 101.4 H MCH 38.5 H MCHC 38.0 H RDW Std Deviation 46.6 H RDW Coeff of Kaelyn 14.5 Plt Count 382 MPV 10.7 Immature Gran % (Auto) 0.5 Neut % (Auto) 80.4 Lymph % (Auto) 11.3 [place] % (Auto) 6.9 Eos % (Auto) 0.2 Baso % (Auto) 0.7 Neut # (Auto) 11.72 H Lymph # (Auto) 1.64 [place] # (Auto) 1.00 H Eos # (Auto) 0.03 Baso # (Auto) 0.10 Immature Gran # (Auto) 0.07 Stomatocytes 1+ PT 11.5 INR 1.1 APTT 25.3 PTT Ratio 0.9 VBG pH VBG pCO2 VBG pO2 VBG HCO3 VBG O2 Saturation VBG Base Excess Sodium Potassium Chloride Carbon Dioxide Anion Gap BUN Creatinine Est Cr Clr Drug Dosing Est GFR ( Amer) Est GFR (Non-Af Amer) BUN/Creatinine Ratio Glucose POC Glucose 112 H Lactate Calcium Magnesium Total Bilirubin Direct Bilirubin AST ALT Alkaline Phosphatase Troponin I High Sens B-Natriuretic Peptide Total Protein Albumin Procalcitonin Urine Color Urine Appearance Urine pH Ur Specific [place] Urine Protein Urine Glucose (UA) Urine Ketones Urine Blood Urine Nitrite Urine Bilirubin Urine Urobilinogen Ur Leukocyte Esterase Urine WBC (Auto) Urine RBC (Auto) U Hyaline Cast (Auto) U Epithel Cells (Auto) Urine Bacteria (Auto) Urine Yeast Adenovirus (PCR) B. pertussis DNA (PCR) B.parapertussis DNA PCR C. pneumoniae DNA (PCR) Coronavirus OC43 (PCR) Coronavirus HKU1 (PCR) Coronavirus 229E (PCR) SARS-CoV-2 (PCR) Coronavirus NL63 (PCR) Human Metapneumovir PCR Influenza Type A (PCR) Influenza Type B (PCR) M. pneumoniae (PCR) Parainfluenza 1 (PCR) Parainfluenza 2 (PCR) Parainfluenza 3 (PCR) Parainfluenza 4 (PCR) RSV (PCR) Entero/Rhino (PCR) 09/02/23 09/02/23 09/02/23 09:13 09:13 09:13 WBC RBC Hgb Hct MCV MCH MCHC RDW Std Deviation RDW Coeff of Kaelyn Plt Count MPV Immature Gran % (Auto) Neut % (Auto) Lymph % (Auto) [place] % (Auto) Eos % (Auto) Baso % (Auto) Neut # (Auto) Lymph # (Auto) [place] # (Auto) Eos # (Auto) Baso # (Auto) Immature Gran # (Auto) Stomatocytes PT INR APTT PTT Ratio VBG pH VBG pCO2 VBG pO2 VBG HCO3 VBG O2 Saturation VBG Base Excess Sodium 137 Potassium 4.8 Chloride 103 Carbon Dioxide 29 Anion Gap 5 BUN 32 H Creatinine 1.20 Est Cr Clr Drug Dosing 55.6 Est GFR ( Amer) 75.7 Est GFR (Non-Af Amer) 65.3 BUN/Creatinine Ratio 26.7 H Glucose 104 H POC Glucose Lactate Calcium 9.3 Magnesium 1.6 L Total Bilirubin 0.7 Direct Bilirubin 0.3 H AST 39 ALT 32 Alkaline Phosphatase 318 H Troponin I High Sens 17.3 B-Natriuretic Peptide 62 Total Protein 8.0 Albumin 4.0 Procalcitonin 0.42 Urine Color Urine Appearance Urine pH Ur Specific [place] Urine Protein Urine Glucose (UA) Urine Ketones Urine Blood Urine Nitrite Urine Bilirubin Urine Urobilinogen Ur Leukocyte Esterase Urine WBC (Auto) Urine RBC (Auto) U Hyaline Cast (Auto) U Epithel Cells (Auto) Urine Bacteria (Auto) Urine Yeast Adenovirus (PCR) B. pertussis DNA (PCR) B.parapertussis DNA PCR C. pneumoniae DNA (PCR) Coronavirus OC43 (PCR) Coronavirus HKU1 (PCR) Coronavirus 229E (PCR) SARS-CoV-2 (PCR) Coronavirus NL63 (PCR) Human Metapneumovir PCR Influenza Type A (PCR) Influenza Type B (PCR) M. pneumoniae (PCR) Parainfluenza 1 (PCR) Parainfluenza 2 (PCR) Parainfluenza 3 (PCR) Parainfluenza 4 (PCR) RSV (PCR) Entero/Rhino (PCR) 09/02/23 09/02/23 09/02/23 09:14 09:14 09:14 WBC RBC Hgb Hct MCV MCH MCHC RDW Std Deviation RDW Coeff of Kaelyn Plt Count MPV Immature Gran % (Auto) Neut % (Auto) Lymph % (Auto) [place] % (Auto) Eos % (Auto) Baso % (Auto) Neut # (Auto) Lymph # (Auto) [place] # (Auto) Eos # (Auto) Baso # (Auto) Immature Gran # (Auto) Stomatocytes PT INR APTT PTT Ratio VBG pH 7.37 VBG pCO2 54 H VBG pO2 < 20 VBG HCO3 31 VBG O2 Saturation < 60.0 VBG Base Excess 4.7 Sodium Potassium Chloride Carbon Dioxide Anion Gap BUN Creatinine Est Cr Clr Drug Dosing Est GFR ( Amer) Est GFR (Non-Af Amer) BUN/Creatinine Ratio Glucose POC Glucose Lactate 1.8 Calcium Magnesium Total Bilirubin Direct Bilirubin AST ALT Alkaline Phosphatase Troponin I High Sens B-Natriuretic Peptide Total Protein Albumin Procalcitonin Urine Color Urine Appearance Urine pH Ur Specific [place] Urine Protein Urine Glucose (UA) Urine Ketones Urine Blood Urine Nitrite Urine Bilirubin Urine Urobilinogen Ur Leukocyte Esterase Urine WBC (Auto) Urine RBC (Auto) U Hyaline Cast (Auto) U Epithel Cells (Auto) Urine Bacteria (Auto) Urine Yeast Adenovirus (PCR) Not Detected B. pertussis DNA (PCR) Not Detected B.parapertussis DNA PCR Not Detected C. pneumoniae DNA (PCR) Not Detected Coronavirus OC43 (PCR) Not Detected Coronavirus HKU1 (PCR) Not Detected Coronavirus 229E (PCR) Not Detected SARS-CoV-2 (PCR) Not Detected Coronavirus NL63 (PCR) Not Detected Human Metapneumovir PCR Not Detected Influenza Type A (PCR) Not Detected Influenza Type B (PCR) Not Detected M. pneumoniae (PCR) Not Detected Parainfluenza 1 (PCR) Not Detected Parainfluenza 2 (PCR) Not Detected Parainfluenza 3 (PCR) Not Detected Parainfluenza 4 (PCR) Not Detected RSV (PCR) Not Detected Entero/Rhino (PCR) Not Detected 09/02/23 09:27 WBC RBC Hgb Hct MCV MCH MCHC RDW Std Deviation RDW Coeff of Kaelyn Plt Count MPV Immature Gran % (Auto) Neut % (Auto) Lymph % (Auto) [place] % (Auto) Eos % (Auto) Baso % (Auto) Neut # (Auto) Lymph # (Auto) [place] # (Auto) Eos # (Auto) Baso # (Auto) Immature Gran # (Auto) Stomatocytes PT INR APTT PTT Ratio VBG pH VBG pCO2 VBG pO2 VBG HCO3 VBG O2 Saturation VBG Base Excess Sodium Potassium Chloride Carbon Dioxide Anion Gap BUN Creatinine Est Cr Clr Drug Dosing Est GFR ( Amer) Est GFR (Non-Af Amer) BUN/Creatinine Ratio Glucose POC Glucose Lactate Calcium Magnesium Total Bilirubin Direct Bilirubin AST ALT Alkaline Phosphatase Troponin I High Sens B-Natriuretic Peptide Total Protein Albumin Procalcitonin Urine Color Yellow Urine Appearance Cloudy A Urine pH 5.5 Ur Specific [place] 1.017 Urine Protein Negative Urine Glucose (UA) Negative Urine Ketones Negative Urine Blood Trace H Urine Nitrite Negative Urine Bilirubin Negative Urine Urobilinogen Negative Ur Leukocyte Esterase 3+ H Urine WBC (Auto) >30 H Urine RBC (Auto) 0-4 U Hyaline Cast (Auto) 1-5 U Epithel Cells (Auto) 5-10 H Urine Bacteria (Auto) Negative Urine Yeast Budding A Adenovirus (PCR) B. pertussis DNA (PCR) B.parapertussis DNA PCR C. pneumoniae DNA (PCR) Coronavirus OC43 (PCR) Coronavirus HKU1 (PCR) Coronavirus 229E (PCR) SARS-CoV-2 (PCR) Coronavirus NL63 (PCR) Human Metapneumovir PCR Influenza Type A (PCR) Influenza Type B (PCR) M. pneumoniae (PCR) Parainfluenza 1 (PCR) Parainfluenza 2 (PCR) Parainfluenza 3 (PCR) Parainfluenza 4 (PCR) RSV (PCR) Entero/Rhino (PCR) Diagnostic Findings Chest X-Ray 09/02/23 09:06 XR chest 1V portable CLINICAL HISTORY: Sepsis COMPARISON STUDY: Chest radiograph May 07, 2021. FINDINGS: No pneumothorax or pleural effusion is present. Cardiac size is normal. Mediastinal contours are normal. Linear retrocardiac densities are noted. There may be subtle right upper lung airspace opacities. No evidence for overt pulmonary edema. Mild asymmetric interstitial thickening within the right lung is likely technical. IMPRESSION: 1. Possible subtle right upper lung airspace opacities and slight asymmetric interstitial thickening within the right lung. The findings are likely technical however an infectious process cannot be excluded. Radiographic follow-up is recommended. 2. Linear retrocardiac opacities which favor atelectasis however can be assessed on follow-up chest radiograph. ACT 112: Negative or not required by law. Electronically signed by: Shay Souza M.D. 09/02/2023 9:[address] 09/02/23 09:06 CT OF THE HEAD WITHOUT CONTRAST CLINICAL HISTORY: Altered mental status. COMPARISON STUDY: No previous studies for comparison. CT DOSE: 1250.21 mGy.cm TECHNIQUE: Helical axial images of the head were obtained without IV contrast. Automated exposure control was utilized for the study. A dose lowering technique was utilized adhering to the principles of ALARA. FINDINGS: This exam is mildly compromised by motion artifact. Multifocal white matter hypodensities are present. No acute intracranial hemorrhage, midline shift or mass effect is present. The ventricular system is unremarkable. The basal cisterns are patent. No extra-axial collections are present. There are no findings to suggest acute dural sinus thrombosis or acute territorial infarct. No significant calvarial abnormalities are present. Visualized portions of the sinuses and mastoid air cells are clear. IMPRESSION: 1. No acute intracranial hemorrhage or mass effect. Exam mildly compromised by motion artifact. 2. Multifocal white matter hypodensities. These are nonspecific but statistically reflect small vessel disease. ACT 112: Negative or not required by law. Electronically signed by: Shay Souza M.D. 09/02/2023 9:36 AM Medications Administered Vancomycin HCl 1,250 mg/ (Sodium Chloride) 525 mls @ 200 mls/hr IV NOW ONE Stop: 09/02/23 12:10 Last Admin: 09/02/23 09:49 Dose: 200 mls/hr Documented By: WALT Discontinued Medications Sodium Chloride (Nss) 1,000 mls @ 999 mls/hr IV .Q1H1M ONE Stop: 09/02/23 10:33 Last Infusion: 09/02/23 11:26 Dose: 0 mls/hr Documented By: Admin: 09/02/23 09:48 Dose: 999 mls/hr Documented By: WALT Piperacillin Sod/Tazobactam Sod (Zosyn) 4.5 gm in 100 mls @ 200 mls/hr IV NOW ONE Stop: 09/02/23 10:02 Last Infusion: 09/02/23 10:38 Dose: 0 mls/hr Documented By: Admin: 09/02/23 10:04 Dose: 200 mls/hr Documented By: WALT Magnesium Sulfate/Dextrose (Magnesium Sulfate / D5w) 1 gm in 100 mls @ 100 mls/hr IV NOW STA Stop: 09/02/23 11:19 Last Admin: 09/02/23 10:33 Dose: 100 mls/hr Documented By: WALT Sodium Chloride (Nss) 1,000 mls @ 999 mls/hr IV .Q1H1M ONE Stop: 09/02/23 11:19 Last Admin: 09/02/23 10:37 Dose: 999 mls/hr Documented By: WALT Supervising Physician Co-Signing Physician Notes Attending addendum: The patient was seen and examined in emergency room He was transferred from [facility] with fever and change in mental status Recently he was in to [facility] following a cardiac arrest and subdural hematoma He has been to [facility] for the last 4 or 5 days His baseline at [facility] is not totally available at this time He has been making a few words during my examination but does not seem to be in any distress On examination Lying in bed without any apparent distress Hemodynamically stable with a pulse of 103/min and afebrile Chestdecreased breath sounds bilaterally with coarse crackles Heart-S1-S2, regular Abdomen-soft, bowel sound present Extremities-no edema SMEARER-alert and awake, minimally verbal, less movement of the left upper extremity compared with all other extremities, generally very weak and lethargy His admission labs, EKG, medications and imaging studies reviewed Right upper lobe pneumonia with change in mental status Recent subdural hematoma and history of recent cardiac arrest Blood cultures have been taken and broad-spectrum antibiotics have been started Agree with assessment and plan as outlined above by HARVINDER Mcnulty DR (1) Pneumonia Laterality: right Lung location: unspecified part of lung Pneumonia type: due to unspecified organism Qualified Code(s): J18.9 - Pneumonia, unspecified organism
[2023-09-02] MEDS: SODIUM CHLORIDE 0.9% 1,000 ML IV SCH (12:17)
--- NOTE | 2023-09-02 12:40 | Electrocardiogram Report ---
Test Reason : Blood Pressure : / mmHG Vent. Rate : 099 BPM Atrial Rate : 099 BPM P-R Int : 160 ms QRS Dur : 132 ms QT Int : 380 ms P-R-T Axes : 079 267 062 degrees QTc Int : 487 ms Normal sinus rhythm Right bundle branch block Inferior infarct (cited on or before 27-APR-2021) Abnormal ECG When compared with ECG of 27-APR-2021 19:01, Right bundle branch block is now Present Confirmed by Luisito Del Rio ([id number]) on 09/02/2023 12:39:51 PM Referred By: Confirmed By:Luisito Del Rio
[2023-09-02] MEDS ORDERED: GLUCOSE 40% GEL 15 GM TUBE PO PRN (13:11)
[2023-09-02] MEDS ORDERED: DEXTROSE 50% 50 ML SYRINGE IV PRN (13:11)
[2023-09-02] MEDS ORDERED: GLUCAGON FOR INJ 1 MG VIAL SQ PRN (13:11)
[2023-09-02] MEDS ORDERED: CARBOHYDRATES FOR HYPOGLYCEMIA PO PRN (13:11)
[2023-09-02] MEDS ORDERED: GLUCOSE 10 TAB/TUBE PO PRN (13:11)
--- NOTE | 2023-09-02 13:55 | Pharmacy Report ---
Pharmacy PK ABX Note - Date of Service September 02, 2023 - Assessment and Plan Assessment 58 year old M receiving empiric vancomycin and Zosyn for treatment of possible infection in context of fever this morning prior to ED presentation. Patient presenting from [facility] w/ altered mental status. Hx of T2DM and recent cardiac arrest and subdural hematoma. Concern for possible pneumonia. Leukocytosis on admission (WBC: 14 K). MRSA nasal swab pending, blood/urine cultures pending. Day # 1 of antimicrobial therapy. Plan Vancomycin * Loading dose: 1250 mg IV x 1 * Maintenance dose: 1000 mg IV every 18 hours * Regimen is predicted to achieve target AUC/DELMER of 400-600 mg/L.hr * Will order level if still on vancomycin once at steady-state Zosyn * 4.5 g IV q8h - appropriate, no change Pharmacy will continue to follow and will adjust dose/frequency as necessary. Thank you. Pharmacy has transitioned to AUC monitoring for vancomycin. AUC/DELMER is the preferred PK/PD target and is associated with decreased risk of nephrotoxicity compared to traditional trough targets.
[2023-09-02] MEDS ORDERED: INFLUENZA VIRUS QUADRIVALENT VACCINE (IIV4) 0.5 ML SYR IM ONE (15:04)
[2023-09-02] MEDS: PIPERACILLIN/TAZOBACTAM 4.5 GM in DEXTROSE 5% MINI-B 100 ML IV SCH (15:54)
[2023-09-02] MEDS: INSULIN ASPART PER UNIT CHARGE SC SCH ×2 (16:28→20:29)
[2023-09-02] MEDS ORDERED: VANCOMYCIN HCL 1,000 MG in SODIUM CHLORIDE 0.9% 250 ML IV SCH (18:00)
[2023-09-02] MEDS ORDERED: oxyCODONE HCL IR 30 MG TAB (IMMEDIATE RELEASE) PO SCH (20:00)
[2023-09-02] MEDS: oxyCODONE HCL IR 5 MG TAB (IMMEDIATE RELEASE) PO SCH (20:20)
[2023-09-02] MEDS: GABAPENTIN 800 MG TAB PO SCH ×2 (20:20→20:30)
[2023-09-02] MEDS: METOPROLOL TARTRATE 50 MG TAB PO SCH (20:21)
[2023-09-03] MEDS: PIPERACILLIN/TAZOBACTAM 4.5 GM in DEXTROSE 5% MINI-B 100 ML IV SCH ×4 (00:40→23:59)
[2023-09-03] MEDS: SODIUM CHLORIDE 0.9% 1,000 ML IV SCH (03:39)
[2023-09-03 06:50] LABS: Basophils # (auto) 0.09 K/uL (0.00-0.20); Basophils % (auto) 0.9 %; Eosinophils # (auto) 0.09 K/uL (0.00-0.50); Eosinophils % (auto) 0.9 %; Hematocrit (blood only) 24.5 % (42.0-52.0); Hemoglobin 8.4 g/dl (14.0-18.0); Immature Granulocytes # (auto) 0.02 K/uL (0.01-0.20); Immature Granulocytes % (auto) 0.2 %; Lymphocytes # (auto) 1.53 K/uL (1.20-3.40); Mean Corpuscular Hemoglobin 32.9 pg (25.0-34.0); Mean Corpuscular Hgb Conc 34.3 g/dL (32.0-36.0); Mean Corpuscular Volume 96.1 fL (80.0-100.0); Mean Platelet Volume 10.6 fL (9.4-12.4); Monocytes # (auto) 0.93 K/uL (0.11-0.59); Monocytes % (auto) 9.1 %; Neutrophils # (auto) 7.57 K/uL (1.40-6.50); Neutrophils % (auto) 73.9 %; Platelet Count 252 K/uL (130-400); RDW Standard Deviation 45.4 fL (36.4-46.3); Red Blood Count 2.55 M/uL (4.70-6.10); White Blood Count 10.23 K/ul (4.8-10.8)
[2023-09-03 06:56] LABS: BUN Creatinine Ratio 19.6 (10-20); Bilirubin Direct 0.2 mg/dl (0-0.2); Bilirubin,Total 0.8 mg/dl (0.2-1.0); Calcium 8.2 mg/dl (8.6-10.3); Creatinine Clr Calc Pharmacy 71.9 ml/min; Est GFR (African American) 97.9 ml/min; Est GFR (Non-African American) 84.5 ml/min; Magnesium 1.5 mg/dl (1.7-2.4); Potassium 3.9 mmol/L (3.5-5.1)
[2023-09-03] MEDS: METOPROLOL TARTRATE 50 MG TAB PO SCH ×3 (08:04→19:45)
[2023-09-03] MEDS: ENOXAPARIN INJ 40 MG/0.4 ML SYR SQ SCH (08:04)
[2023-09-03] MEDS: INSULIN ASPART PER UNIT CHARGE SC SCH ×4 (08:05→20:36)
[2023-09-03] MEDS: D5W AND 1/2NSS 1,000 ML IV SCH ×2 (08:05→21:58)
[2023-09-03] MEDS: GABAPENTIN 800 MG TAB PO SCH ×4 (08:06→19:44)
[2023-09-03] MEDS: oxyCODONE HCL IR 5 MG TAB (IMMEDIATE RELEASE) PO SCH ×3 (08:10→19:44)
[2023-09-03] MEDS ORDERED: VANCOMYCIN HCL 1,250 MG in SODIUM CHLORIDE 0.9% 250 ML IV SCH (12:00)
--- NOTE | 2023-09-03 15:05 | Hospitalist Progress Note ---
Date of Service September 03, 2023 Assessment & Plan (1) Pneumonia: Plan: This is a 58 y/o male with recent cardiac arrest, CVA, SDH, shock liver, atypical pneumonia and MIKE and a history of DM2, alcohol abuse, chronic pain w/ opioid dependence, COPD, afib, and HFpEF who was sent to the ED from [facility] due to increased lethargy, episode of hypoglycemia, and reported fever. Clinical picture at presentation most consistent with pneumonia as the cause of his lethargy - abnormal chest x-ray, leukocytosis, abnormal lung exam, cough. He is being managed for following: Pneumonia: Metabolic encephalopathy: likely 2/2 above. - Broad-spectrum IV antibiotics with Vanco and Zosyn, particularly in view of recent prolonged ICU stay putting him at risk for HAP - MRSA swab neg, NG24H Bl Cx ---> Vanco dropped 09/03. - Continue O2 titrated to maintain pulseox >92%, on 2L NC O2 in AM, later was on RA. - Monitor and replete electrolytes - Mentation/alertness improving per RN and per Dtr. - Advance diet as sherry. - Deescalate atb as more info comes in. - DC IVF once w/ good PO intake. (2) Hypoxia: (3) Acute alteration in mental status: (4) Hypomagnesemia: (5) Diabetes mellitus: (6) Alcohol abuse: (7) Opioid dependence: (8) History of subdural hematoma: Plan See above. Code Status: DNR DVT Prophylaxis: has been tolerating Lovenox at [facility] so will continue Admission and Anticipated Discharge Date Admission Date: September 02, 2023 Subjective Patient was seen and examined at bedside. Patient was sitting up in bed, on 2 L oxygen via nasal cannula, resting comfortably, not in any acute distress. Patient mostly nonverbal, denies pain, ROS not able in detail. Per RN, patient has significantly improved mentation since yesterday. Advance diet as tolerated. Later on patient's daughter was met at bedside, she states that she also reports significant improvement in his mentation since yesterday. Updated her regarding his plan of care, answered all her questions, she voiced understanding and was agreeable to the plan of care. Physical Exam Physical Exam: GENERAL: Lethargic, slow to response, mostly nonverbal, 2 L oxygen via nasal cannula, NAD. Appears ill/frail/weak. HEENT: No pallor, no icterus. Pupils equal, round and reactive to light. Oral mucosa moist. NECK: No JVD, no neck masses. HEART: S1 and S2 heard. Regular rate and rhythm. No murmur, no gallop. RESPIRATORY SYSTEM: Normal AP diameter. No accessory muscle use. No wheezing, bilateral crackles. ABDOMEN: Soft, bowel sounds present, nontender, no distention. CENTRAL NERVOUS SYSTEM: No facial droop. Speech is clear. Obeys simple commands. Moves extremities. EXTREMITIES: No edema, no erythema seen. Urinary catheter in situ, yellow urine collection noted in the bag. Results & Data Results & Data Vital Signs (Past 12 Hours) Vital Signs Temp Pulse Pulse Resp BP Pulse Ox O2 Del Method 09/03/23 10:36 36.9 C 71 16 146/80 H 96 Nasal Cannula 09/03/23 08:00 Nasal Cannula 09/03/23 08:00 74 09/03/23 07:03 37 C 79 16 162/81 H 97 Nasal Cannula 09/03/23 03:54 37.1 C 80 18 146/73 H 97 Nasal Cannula O2 Flow Rate 09/03/23 10:36 2 09/03/23 08:00 2 09/03/23 08:00 09/03/23 07:03 2 09/03/23 03:54 2 (1) Pneumonia Laterality: right Lung location: unspecified part of lung Pneumonia type: due to unspecified organism Qualified Code(s): J18.9 - Pneumonia, unspecified organism
[2023-09-03] MEDS ORDERED: ACETAMINOPHEN 1,000 MG/100 ML VIAL IV STA (20:05)
[2023-09-03] MEDS ORDERED: METOPROLOL TARTRATE 1 MG/ML VIAL IV STA (20:07)
[2023-09-03] MEDS ORDERED: MAGNESIUM SULFATE / D5W 1 GM/100 ML BAG IV ONE (20:10)
[2023-09-03] MEDS: levETIRAcetam 500 MG in 0.9 % SODIUM CHLORIDE 100 ML IV SCH (21:05)
[2023-09-04] MEDS: METOPROLOL TARTRATE 1 MG/ML VIAL IV SCH ×4 (05:33→16:55)
[2023-09-04 06:03] LABS: Basophils # (auto) 0.08 K/uL (0.00-0.20); Basophils % (auto) 0.6 %; Eosinophils # (auto) 0.09 K/uL (0.00-0.50); Eosinophils % (auto) 0.6 %; Hematocrit (blood only) 27.3 % (42.0-52.0); Hemoglobin 9.7 g/dl (14.0-18.0); Immature Granulocytes # (auto) 0.05 K/uL (0.01-0.20); Immature Granulocytes % (auto) 0.4 %; Lymphocytes # (auto) 1.38 K/uL (1.20-3.40); Lymphocytes % (auto) 9.8 %; Mean Corpuscular Hemoglobin 33.3 pg (25.0-34.0); Mean Corpuscular Hgb Conc 35.5 g/dL (32.0-36.0); Mean Corpuscular Volume 93.8 fL (80.0-100.0); Mean Platelet Volume 10.5 fL (9.4-12.4); Monocytes # (auto) 1.18 K/uL (0.11-0.59); Monocytes % (auto) 8.4 %; Neutrophils # (auto) 11.35 K/uL (1.40-6.50); Neutrophils % (auto) 80.2 %; Platelet Count 268 K/uL (130-400); RDW Coefficient of Variation 12.8 % (11.5-14.5); RDW Standard Deviation 44.1 fL (36.4-46.3); Red Blood Count 2.91 M/uL (4.70-6.10); White Blood Count 14.13 K/ul (4.8-10.8)
[2023-09-04 06:20] LABS: BUN Creatinine Ratio 11.8 (10-20); Calcium 8.1 mg/dl (8.6-10.3); Creatinine Clr Calc Pharmacy 77.7 ml/min; Est GFR (African American) 103.1 ml/min; Est GFR (Non-African American) 88.9 ml/min; Magnesium 1.4 mg/dl (1.7-2.4); Phosphorus 2.7 mg/dl (2.5-4.9); Potassium 3.8 mmol/L (3.5-5.1)
[2023-09-04] MEDS: PIPERACILLIN/TAZOBACTAM 4.5 GM in DEXTROSE 5% MINI-B 100 ML IV SCH ×2 (07:19→15:52)
[2023-09-04] MEDS: levETIRAcetam 500 MG in 0.9 % SODIUM CHLORIDE 100 ML IV SCH ×2 (07:20→21:11)
[2023-09-04] MEDS: ENOXAPARIN INJ 40 MG/0.4 ML SYR SQ SCH (07:20)
[2023-09-04] MEDS: GABAPENTIN 800 MG TAB PO SCH ×5 (07:28→21:05)
[2023-09-04] MEDS: INSULIN ASPART PER UNIT CHARGE SC SCH ×4 (08:29→21:06)
[2023-09-04] MEDS: MAGNESIUM SULFATE / D5W 1 GM/100 ML BAG IV SCH ×3 (08:29→11:44)
[2023-09-04] MEDS: oxyCODONE HCL IR 5 MG TAB (IMMEDIATE RELEASE) PO SCH ×2 (09:08→21:49)
--- NOTE | 2023-09-04 15:31 | Hospitalist Progress Note ---
Date of Service September 04, 2023 Assessment & Plan (1) Pneumonia: (2) Hypoxia: (3) Acute alteration in mental status: (4) Hypomagnesemia: (5) Diabetes mellitus: (6) Alcohol abuse: (7) Opioid dependence: (8) History of subdural hematoma: Plan This is a 58 y/o male with recent cardiac arrest, CVA, SDH, shock liver, atypical pneumonia and MIKE and a history of DM2, alcohol abuse, chronic pain w/ opioid dependence, COPD, afib, and HFpEF who was sent to the ED from [facility] due to increased lethargy, episode of hypoglycemia, and reported fever. Clinical picture at presentation most consistent with pneumonia as the cause of his lethargy - abnormal chest x-ray, leukocytosis, abnormal lung exam, cough. He is being managed for following: Pneumonia: Metabolic encephalopathy: likely 2/2 above. Febrile to Tmax of 39 C. Oxygenation is stable at 2 L/min of nasal cannula Chest x-ray personally reviewed; possible subtle right upper lobe lung airway opacities Bedside swallow evaluation was done; patient appears to be aspirating on multiple consistencies. [employer] recommends n.p.o. -Currently on Zosyn which we will continue. Will start him on D5 NS to prevent hypoglycemia. - will start him on airway clearance therapy. Possible VFSS depending on mentation improvement. -Will decrease his opioids to see if he is lethargy improves - Monitor and replete electrolytes Chronic conditions; Hypertensioncurrently oral metoprolol on hold; restarted on IV metoprolol. Seizure disordercontinue on Keppra, seizure prophylaxis Type 2 diabetes mellituscontinue on insulin DVT prophylaxis Lovenox DNR/DNI Updated his daughter over the phone. Answered questions/queries. Time spent evaluating patient, direct bedside care, chart review, placing orders, interpretation of diagnostic studies, discussion with consultants, patient, and family members, as well as other required patient management activities is 60 minutes Please note the above document was generated using voice recognition software. It may contain grammatical, syntax or spelling errors. Any formal questions or concerns about the content, text or information contained within the body of this dictation should be directly addressed to the provider for clarification Admission and Anticipated Discharge Date Admission Date: September 02, 2023 Subjective Patient seen and examined at bedside. He appears to be withdrawn; did not interact much. Appears to be comfortable. Review of Systems Review of Systems: Unobtainable due to cognitive status Physical Exam Physical Exam: GENERAL: Appears weak and frail. Minimal interaction. HEENT: No pallor, no icterus. Pupils equal, round and reactive to light. Oral mucosa moist. NECK: No JVD, no neck masses. HEART: S1 and S2 heard. Regular rate and rhythm. No murmur, no gallop. RESPIRATORY SYSTEM: Normal AP diameter. No accessory muscle use. No wheezing, bilateral crackles. ABDOMEN: Soft, bowel sounds present, nontender, no distention. CENTRAL NERVOUS SYSTEM: No facial droop. Speech is clear. Obeys simple commands. Moves extremities. EXTREMITIES: No edema, no erythema seen. Urinary catheter in situ, yellow urine collection noted in the bag. Results & Data Results & Data Vital Signs (Past 12 Hours) Vital Signs Temp Pulse Pulse Resp BP Pulse Ox O2 Del Method 09/04/23 12:11 69 09/04/23 11:11 37.1 C 79 16 129/66 94 Nasal Cannula 09/04/23 08:00 Nasal Cannula 09/04/23 08:00 83 09/04/23 07:30 88 19 158/77 H 94 Nasal Cannula 09/04/23 07:25 37.1 C 09/04/23 06:06 80 09/04/23 05:33 94 H O2 Flow Rate 09/04/23 12:11 09/04/23 11:11 2 09/04/23 08:00 2 09/04/23 08:00 09/04/23 07:30 2 09/04/23 07:25 09/04/23 06:06 09/04/23 05:33 Laboratory Results Laboratory Results WBC 14.13 K/ul (4.8-10.8) H 09/04/23 05:25 RBC 2.91 M/uL (4.70-6.10) L 09/04/23 05:25 Hgb 9.7 g/dl (14.0-18.0) L 09/04/23 05:25 Hct 27.3 % (42.0-52.0) L 09/04/23 05:25 MCV 93.8 fL (80.0-100.0) 09/04/23 05:25 MCH 33.3 pg (25.0-34.0) 09/04/23 05:25 MCHC 35.5 g/dL (32.0-36.0) 09/04/23 05:25 RDW Std Deviation 44.1 fL (36.4-46.3) 09/04/23 05:25 RDW Coeff of Kaelyn 12.8 % (11.5-14.5) 09/04/23 05:25 Plt Count 268 K/uL (130-400) 09/04/23 05:25 MPV 10.5 fL (9.4-12.4) 09/04/23 05:25 Immature Gran % (Auto) 0.4 % 09/04/23 05:25 Neut % (Auto) 80.2 % 09/04/23 05:25 Lymph % (Auto) 9.8 % 09/04/23 05:25 [place] % (Auto) 8.4 % 09/04/23 05:25 Eos % (Auto) 0.6 % 09/04/23 05:25 Baso % (Auto) 0.6 % 09/04/23 05:25 Neut # (Auto) 11.35 K/uL (1.40-6.50) H 09/04/23 05:25 Lymph # (Auto) 1.38 K/uL (1.20-3.40) 09/04/23 05:25 [place] # (Auto) 1.18 K/uL (0.11-0.59) H 09/04/23 05:25 Eos # (Auto) 0.09 K/uL (0.00-0.50) 09/04/23 05:25 Baso # (Auto) 0.08 K/uL (0.00-0.20) 09/04/23 05:25 Immature Gran # (Auto) 0.05 K/uL (0.01-0.20) 09/04/23 05:25 Stomatocytes 1+ 09/02/23 09:13 PT 11.5 Seconds (9.0-12.0) 09/02/23 09:13 INR 1.1 (0.9-1.1) 09/02/23 09:13 APTT 25.3 Seconds (21.0-31.0) 09/02/23 09:13 PTT Ratio 0.9 09/02/23 09:13 VBG pH 7.37 (7.36-7.41) 09/02/23 09:14 VBG pCO2 54 mmHg (38-50) H 09/02/23 09:14 VBG pO2 < 20 mmHg 09/02/23 09:14 VBG HCO3 31 mmol/L 09/02/23 09:14 VBG O2 Saturation < 60.0 % 09/02/23 09:14 VBG Base Excess 4.7 mEq/L 09/02/23 09:14 Sodium 135 mmol/L (136-145) L 09/04/23 05:25 Potassium 3.8 mmol/L (3.5-5.1) 09/04/23 05:25 Chloride 105 mmol/L (98-107) 09/04/23 05:25 Carbon Dioxide 25 mmol/L (21-32) 09/04/23 05:25 Anion Gap 5 (3-11) 09/04/23 05:25 BUN 11 mg/dl (6-23) 09/04/23 05:25 Creatinine 0.93 mg/dl (0.6-1.4) 09/04/23 05:25 Est Cr Clr Drug Dosing 77.7 ml/min 09/04/23 05:25 Est GFR ( Amer) 103.1 ml/min 09/04/23 05:25 Est GFR (Non-Af Amer) 88.9 ml/min 09/04/23 05:25 BUN/Creatinine Ratio 11.8 (10-20) 09/04/23 05:25 Glucose 197 mg/dl (70-99(Fasting)) H 09/04/23 05:25 POC Glucose 178 mg/dl (70-99) H 09/04/23 11:10 Lactate 1.8 mmol/L (0.4-2.0) 09/02/23 09:14 Calcium 8.1 mg/dl (8.6-10.3) L 09/04/23 05:25 Phosphorus 2.7 mg/dl (2.5-4.9) 09/04/23 05:25 Magnesium 1.4 mg/dl (1.7-2.4) L 09/04/23 05:25 Total Bilirubin 0.8 mg/dl (0.2-1.0) 09/03/23 05:28 Direct Bilirubin 0.2 mg/dl (0-0.2) 09/03/23 05:28 AST 33 U/L (13-39) 09/03/23 05:28 ALT 22 U/L (7-52) 09/03/23 05:28 Alkaline Phosphatase 211 U/L (34-104) H 09/03/23 05:28 Troponin I High Sens 17.3 pg/ml (0-20) 09/02/23 09:13 B-Natriuretic Peptide 62 pg/ml (0-100) 09/02/23 09:13 Total Protein 6.0 gm/dl (6.0-8.3) D 09/03/23 05:28 Albumin 3.0 gm/dl (3.4-5.0) L 09/03/23 05:28 Procalcitonin 0.42 ng/ml (0-0.5) 09/02/23 09:13 Urine Color Yellow 09/02/23 09:27 Urine Appearance Cloudy (Clear) A 09/02/23 09: Urine pH 5.5 (4.5-7.5) 09/02/23 09:27 Ur Specific [place] 1.017 (1.000-1.030) 09/02/23 09:27 Urine Protein Negative (Negative) 09/02/23 09:27 Urine Glucose (UA) Negative (Negative) 09/02/23 09: Urine Ketones Negative (Negative) 09/02/23 09: Urine Blood Trace (Negative) H 09/02/23 09:27 Urine Nitrite Negative (Negative) 09/02/23 09: Urine Bilirubin Negative (Negative) 09/02/23 09: Urine Urobilinogen Negative (Negative) 09/02/23 09:27 Ur Leukocyte Esterase 3+ (Negative) H 09/02/23 09:27 Urine WBC (Auto) >30 /hpf (0-5) H 09/02/23 09:27 Urine RBC (Auto) 0-4 /hpf (0-4) 09/02/23 09:27 U Hyaline Cast (Auto) 1-5 /lpf (0-5) 09/02/23 09:27 U Epithel Cells (Auto) 5-10 /lpf (0-5) H 09/02/23 09:27 Urine Bacteria (Auto) Negative (Negative) 09/02/23 09:27 Urine Yeast Budding (None Prsent) A 09/02/23 09:27 Nasal Screen MRSA (PCR) Negative (Negative) 09/02/23 15:20 Adenovirus (PCR) Not Detected (NotDetected) 09/02/23 09:14 B. pertussis DNA (PCR) Not Detected (NotDetected) 09/02/23 09:14 B.parapertussis DNA PCR Not Detected (NotDetected) 09/02/23 09:14 C. pneumoniae DNA (PCR) Not Detected (NotDetected) 09/02/23 09:14 Coronavirus OC43 (PCR) Not Detected (NotDetected) 09/02/23 09:14 Coronavirus HKU1 (PCR) Not Detected (NotDetected) 09/02/23 09:14 Coronavirus 229E (PCR) Not Detected (NotDetected) 09/02/23 09:14 SARS-CoV-2 (PCR) Not Detected (NotDetected) 09/02/23 09:14 Coronavirus NL63 (PCR) Not Detected (NotDetected) 09/02/23 09:14 Human Metapneumovir PCR Not Detected (NotDetected) 09/02/23 09:14 Influenza Type A (PCR) Not Detected (NotDetected) 09/02/23 09:14 Influenza Type B (PCR) Not Detected (NotDetected) 09/02/23 09:14 M. pneumoniae (PCR) Not Detected (NotDetected) 09/02/23 09:14 Parainfluenza 1 (PCR) Not Detected (NotDetected) 09/02/23 09:14 Parainfluenza 2 (PCR) Not Detected (NotDetected) 09/02/23 09:14 Parainfluenza 3 (PCR) Not Detected (NotDetected) 09/02/23 09:14 Parainfluenza 4 (PCR) Not Detected (NotDetected) 09/02/23 09:14 RSV (PCR) Not Detected (NotDetected) 09/02/23 09:14 Entero/Rhino (PCR) Not Detected (NotDetected) 09/02/23 09:14 Impressions Chest X-Ray 09/02/23 09:06 XR chest 1V portable CLINICAL HISTORY: Sepsis COMPARISON STUDY: Chest radiograph May 07, 2021. FINDINGS: No pneumothorax or pleural effusion is present. Cardiac size is normal. Mediastinal contours are normal. Linear retrocardiac densities are noted. There may be subtle right upper lung airspace opacities. No evidence for overt pulmonary edema. Mild asymmetric interstitial thickening within the right lung is likely technical. IMPRESSION: 1. Possible subtle right upper lung airspace opacities and slight asymmetric interstitial thickening within the right lung. The findings are likely technical however an infectious process cannot be excluded. Radiographic follow-up is recommended. 2. Linear retrocardiac opacities which favor atelectasis however can be assessed on follow-up chest radiograph. ACT 112: Negative or not required by law. Electronically signed by: Shay Souza M.D. 09/02/2023 9:[address] 09/02/23 09:06 CT OF THE HEAD WITHOUT CONTRAST CLINICAL HISTORY: Altered mental status. COMPARISON STUDY: No previous studies for comparison. CT DOSE: 1250.21 mGy.cm TECHNIQUE: Helical axial images of the head were obtained without IV contrast. Automated exposure control was utilized for the study. A dose lowering technique was utilized adhering to the principles of ALARA. FINDINGS: This exam is mildly compromised by motion artifact. Multifocal white matter hypodensities are present. No acute intracranial hemorrhage, midline shift or mass effect is present. The ventricular system is unremarkable. The basal cisterns are patent. No extra-axial collections are present. There are no findings to suggest acute dural sinus thrombosis or acute territorial infarct. No significant calvarial abnormalities are present. Visualized portions of the sinuses and mastoid air cells are clear. IMPRESSION: 1. No acute intracranial hemorrhage or mass effect. Exam mildly compromised by motion artifact. 2. Multifocal white matter hypodensities. These are nonspecific but statistically reflect small vessel disease. ACT 112: Negative or not required by law. Electronically signed by: Shay Souza M.D. 09/02/2023 9:36 AM (1) Pneumonia Laterality: right Lung location: unspecified part of lung Pneumonia type: due to unspecified organism Qualified Code(s): J18.9 - Pneumonia, unspecified organism
[2023-09-04] MEDS: ALBUT/IPRATROP 3MG/0.5MG NEB 3 ML VIAL NEB SCH (16:13)
[2023-09-04] MEDS: SODIUM CHLOR 7% 4 ML NEB NEB SCH (16:13)
[2023-09-04] MEDS: D5W AND NSS 1,000 ML IV SCH (16:16)
[2023-09-04] MEDS ORDERED: ACETAMINOPHEN 1,000 MG/100 ML VIAL IV STA (16:47)
[2023-09-04] MEDS: ACETAMINOPHEN 1,000 MG/100 ML VIAL IV PRN (16:52)
[2023-09-04] MEDS ORDERED: VANCOMYCIN CONSULT ACTIVE PRN (17:07)
--- NOTE | 2023-09-04 17:23 | XRay Report ---
XR chest 1V portable HISTORY: 58 years-old Male respiratory distress acute respiratory distress COMPARISON: 09/02/2023 TECHNIQUE: AP view of the chest FINDINGS: Cardiac silhouette is mildly enlarged. Patchy bilateral airspace opacities redemonstrated, progressiv viridiana worsened within the right upper lung. No pneumothorax or large pleural effusion. Bones appear sera ssly intact. IMPRESSION: Bilateral airspace opacities, progressed within the right upper lung suggestive of multif ocal pneumonia. Continued follow-up recommended. ACT 112: Negative or not required by law. The above report was generated using voice recognition software. It may contain grammatical, syntax o r spelling errors. Electronically signed by: Tobias Ramírez M.D. 09/04/2023 5:21 PM
[2023-09-04] MEDS ORDERED: VANCOMYCIN HCL 1,250 MG in SODIUM CHLORIDE 0.9% 250 ML IV SCH (18:00)
[2023-09-04] MEDS: VANCOMYCIN HCL 1,250 MG in SODIUM CHLORIDE 0.9% 250 ML IV SCH (18:03)
--- NOTE | 2023-09-04 18:45 | Pharmacy Report ---
Pharmacy PK ABX Note - Date of Service September 04, 2023 - Assessment and Plan Assessment 58 year old M receiving Zosyn, and did have Vancomycin 09/02-09/03, for pneumonia. Restarting Vancomycin now d/t spiking fevers, repeat blood cultures. MRSA nasal swab negative. Plan Vancomycin * Restart at 1250 mg IV every 18 hours * Regimen is predicted to achieve target AUC/DELMER of 400-600 mg/L.hr * Will order level if still on vancomycin once at steady-state Zosyn * 4.5 g IV q8h - appropriate, no change Pharmacy will continue to follow and will adjust dose/frequency as necessary. Thank you. Pharmacy has transitioned to AUC monitoring for vancomycin. AUC/DELMER is the preferred PK/PD target and is associated with decreased risk of nephrotoxicity compared to traditional trough targets.
[2023-09-04] MEDS ORDERED: SODIUM CHLOR 7% 4 ML NEB NEB SCH (19:00)
[2023-09-04] MEDS ORDERED: ALBUT/IPRATROP 3MG/0.5MG NEB 3 ML VIAL NEB SCH (21:00)
[2023-09-04] MEDS: HYDROmorphone INJ 0.5 MG/0.5 ML SYR IV PRN (22:01)
[2023-09-05] MEDS: PIPERACILLIN/TAZOBACTAM 4.5 GM in DEXTROSE 5% MINI-B 100 ML IV SCH ×3 (00:10→15:43)
[2023-09-05] MEDS: METOPROLOL TARTRATE 1 MG/ML VIAL IV SCH ×4 (00:10→16:51)
[2023-09-05] MEDS: ACETAMINOPHEN 1,000 MG/100 ML VIAL IV PRN ×2 (03:25→22:22)
[2023-09-05] MEDS: HYDROmorphone INJ 0.5 MG/0.5 ML SYR IV PRN (04:23)
[2023-09-05 06:24] LABS: Basophils # (auto) 0.06 K/uL (0.00-0.20); Basophils % (auto) 0.4 %; Eosinophils # (auto) 0.01 K/uL (0.00-0.50); Eosinophils % (auto) 0.1 %; Hematocrit (blood only) 25.6 % (42.0-52.0); Hemoglobin 9.3 g/dl (14.0-18.0); Immature Granulocytes # (auto) 0.05 K/uL (0.01-0.20); Immature Granulocytes % (auto) 0.3 %; Lymphocytes # (auto) 0.63 K/uL (1.20-3.40); Lymphocytes % (auto) 4.3 %; Mean Corpuscular Hemoglobin 33.6 pg (25.0-34.0); Mean Corpuscular Hgb Conc 36.3 g/dL (32.0-36.0); Mean Corpuscular Volume 92.4 fL (80.0-100.0); Mean Platelet Volume 10.6 fL (9.4-12.4); Monocytes # (auto) 0.94 K/uL (0.11-0.59); Monocytes % (auto) 6.4 %; Neutrophils # (auto) 13.11 K/uL (1.40-6.50); Neutrophils % (auto) 88.5 %; Platelet Count 257 K/uL (130-400); RDW Coefficient of Variation 12.2 % (11.5-14.5); RDW Standard Deviation 40.6 fL (36.4-46.3); Red Blood Count 2.77 M/uL (4.70-6.10)
[2023-09-05 06:48] LABS: BUN Creatinine Ratio 9.3 (10-20); Calcium 8.1 mg/dl (8.6-10.3); Creatinine Clr Calc Pharmacy 79.5 ml/min; Est GFR (African American) 109.2 ml/min; Est GFR (Non-African American) 94.3 ml/min; Magnesium 1.4 mg/dl (1.7-2.4); Potassium 3.3 mmol/L (3.5-5.1)
[2023-09-05] MEDS: SODIUM CHLOR 7% 4 ML NEB NEB SCH ×2 (07:16→19:52)
[2023-09-05] MEDS: ALBUT/IPRATROP 3MG/0.5MG NEB 3 ML VIAL NEB SCH ×2 (07:16→19:52)
[2023-09-05] MEDS ORDERED: FUROSEMIDE INJ 20 MG/2 ML VIAL IV ONE (07:36)
[2023-09-05] MEDS: levETIRAcetam 500 MG in 0.9 % SODIUM CHLORIDE 100 ML IV SCH ×2 (08:06→20:30)
[2023-09-05] MEDS: GABAPENTIN 800 MG TAB PO SCH ×4 (08:07→20:31)
[2023-09-05] MEDS: ENOXAPARIN INJ 40 MG/0.4 ML SYR SQ SCH (08:07)
[2023-09-05] MEDS: INSULIN ASPART PER UNIT CHARGE SC SCH ×4 (08:12→20:31)
[2023-09-05] MEDS: oxyCODONE HCL IR 5 MG TAB (IMMEDIATE RELEASE) PO SCH ×2 (09:44→20:31)
[2023-09-05] MEDS: D5W AND NSS 1,000 ML IV SCH (10:48)
--- NOTE | 2023-09-05 11:04 | Hospitalist Progress Note ---
Date of Service September 05, 2023 Assessment & Plan (1) Pneumonia: (2) Hypoxia: (3) Acute alteration in mental status: (4) Hypomagnesemia: (5) Diabetes mellitus: (6) Alcohol abuse: (7) Opioid dependence: (8) History of subdural hematoma: Plan This is a 58 y/o male with recent cardiac arrest, CVA, SDH, shock liver, atypical pneumonia and MIKE and a history of DM2, alcohol abuse, chronic pain w/ opioid dependence, COPD, afib, and HFpEF who was sent to the ED from [facility] due to increased lethargy, episode of hypoglycemia, and reported fever. Clinical picture at presentation most consistent with pneumonia as the cause of his lethargy - abnormal chest x-ray, leukocytosis, abnormal lung exam, cough. He is being managed for following: Pneumonia: Metabolic encephalopathy: likely 2/2 above. Acute hypoxic respiratory failure secondary to pneumonia Febrile with Tmax of 39 C. Increasing oxygenation in the last 2 days. Chest x-ray on admission personally reviewed; possible subtle right upper lobe lung airway opacities Repeat chest x-ray done on 09/04 personally reviewed; increasing bilateral opacities. Bedside swallow evaluation was done; patient appears to be aspirating on multiple consistencies. SEAM STEAMER recommends n.p.o. -Appreciate speech eval to start diet. -Currently on vancomycin and Zosyn. We will follow-up on repeat blood culture done on 09/04 -Continue him on airway clearance therapy. Possible VFSS depending on mentation improvement. -Will decrease his opioids to see if he is lethargy improves; currently on oxycodone extended release 15 mg twice daily instead of 30 mg. - Monitor and replete electrolytes Goals of care discussed with his daughter at bedside on 09/05. Discussed overall prognosis as patient has aspiration which is a irreversible condition owing to the stroke. Plan is to continue current medical treatment. If patient shows signs of decompensation in the hospitalization; transition to comfort care. If patient shows signs of improvement will get PT OT evaluation and possible rehab placement. Chronic conditions; Hypertensioncurrently oral metoprolol on hold; restarted on IV metoprolol. Seizure disordercontinue on Keppra, seizure prophylaxis Type 2 diabetes mellituscontinue on insulin DVT prophylaxis Lovenox DNR/DNI Time spent evaluating patient, direct bedside care, chart review, placing orders, interpretation of diagnostic studies, discussion with consultants, patient, and family members, as well as other required patient management activities is 60 minutes Please note the above document was generated using voice recognition software. It may contain grammatical, syntax or spelling errors. Any formal questions or concerns about the content, text or information contained within the body of this dictation should be directly addressed to the provider for clarification Admission and Anticipated Discharge Date Admission Date: September 02, 2023 Subjective Patient seen and examined at bedside. He appears to be more awake and interactive today compared to yesterday. He is moving around in his bed. He is able to answer few questions. Denies any discomfort. Oxygen requirement is at 10 L/min by Oxymask Review of Systems Review of Systems: Unobtainable due to cognitive status Physical Exam Physical Exam: GENERAL: Appears more awake and interactive today. HEENT: No pallor, no icterus. Pupils equal, round and reactive to light. Oral mucosa moist. NECK: No JVD, no neck masses. HEART: S1 and S2 heard. Regular rate and rhythm. No murmur, no gallop. RESPIRATORY SYSTEM:Increase crackles heard in right mid and upper lung mortensen. ABDOMEN: Soft, bowel sounds present, nontender, no distention. CENTRAL NERVOUS SYSTEM:Left hemiparesis; similar to baseline. EXTREMITIES: No edema, no erythema seen. Urinary catheter in situ, yellow urine collection noted in the bag. Results & Data Results & Data Vital Signs (Past 12 Hours) Vital Signs Temp Pulse Pulse Resp BP BP Pulse Ox 09/05/23 08:22 36.4 C L 127 H 24 144/80 H 92 09/05/23 07:16 101 H 18 92 09/05/23 06:25 99 H 153/89 H 09/05/23 03:49 38.1 C H 112 H 18 163/83 H 99 09/05/23 05:45 112 H 159/85 H 09/05/23 02:26 37.0 C 09/05/23 00:45 96 H 09/05/23 00:36 101 H 09/05/23 00:10 104 H 150/83 H 09/04/23 23:03 37.2 C 104 H 20 150/83 H 100 O2 Del Method O2 Flow Rate 09/05/23 08:22 Oxymask 11 09/05/23 07:16 Room Air 09/05/23 06:25 09/05/23 03:49 Oxymask 10 09/05/23 05:45 09/05/23 02:26 09/05/23 00:45 09/05/23 00:36 09/05/23 00:10 09/04/23 23:03 Oxymask 10 Laboratory Results Laboratory Results WBC 14.80 K/ul (4.8-10.8) H 09/05/23 05:26 RBC 2.77 M/uL (4.70-6.10) L 09/05/23 05:26 Hgb 9.3 g/dl (14.0-18.0) L 09/05/23 05:26 Hct 25.6 % (42.0-52.0) L 09/05/23 05:26 MCV 92.4 fL (80.0-100.0) 09/05/23 05:26 MCH 33.6 pg (25.0-34.0) 09/05/23 05:26 MCHC 36.3 g/dL (32.0-36.0) H 09/05/23 05:26 RDW Std Deviation 40.6 fL (36.4-46.3) 09/05/23 05:26 RDW Coeff of Kaelyn 12.2 % (11.5-14.5) 09/05/23 05:26 Plt Count 257 K/uL (130-400) 09/05/23 05:26 MPV 10.6 fL (9.4-12.4) 09/05/23 05:26 Immature Gran % (Auto) 0.3 % 09/05/23 05:26 Neut % (Auto) 88.5 % 09/05/23 05:26 Lymph % (Auto) 4.3 % 09/05/23 05:26 [place] % (Auto) 6.4 % 09/05/23 05:26 Eos % (Auto) 0.1 % 09/05/23 05:26 Baso % (Auto) 0.4 % 09/05/23 05:26 Neut # (Auto) 13.11 K/uL (1.40-6.50) H 09/05/23 05:26 Lymph # (Auto) 0.63 K/uL (1.20-3.40) L 09/05/23 05:26 [place] # (Auto) 0.94 K/uL (0.11-0.59) H 09/05/23 05:26 Eos # (Auto) 0.01 K/uL (0.00-0.50) 09/05/23 05:26 Baso # (Auto) 0.06 K/uL (0.00-0.20) 09/05/23 05:26 Immature Gran # (Auto) 0.05 K/uL (0.01-0.20) 09/05/23 05:26 Stomatocytes 1+ 09/02/23 09:13 PT 11.5 Seconds (9.0-12.0) 09/02/23 09:13 INR 1.1 (0.9-1.1) 09/02/23 09:13 APTT 25.3 Seconds (21.0-31.0) 09/02/23 09:13 PTT Ratio 0.9 09/02/23 09:13 VBG pH 7.37 (7.36-7.41) 09/02/23 09:14 VBG pCO2 54 mmHg (38-50) H 09/02/23 09:14 VBG pO2 < 20 mmHg 09/02/23 09:14 VBG HCO3 31 mmol/L 09/02/23 09:14 VBG O2 Saturation < 60.0 % 09/02/23 09:14 VBG Base Excess 4.7 mEq/L 09/02/23 09:14 Sodium 136 mmol/L (136-145) 09/05/23 05:26 Potassium 3.3 mmol/L (3.5-5.1) L 09/05/23 05:26 Chloride 106 mmol/L (98-107) 09/05/23 05:26 Carbon Dioxide 22 mmol/L (21-32) 09/05/23 05:26 Anion Gap 8 (3-11) 09/05/23 05:26 BUN 8 mg/dl (6-23) 09/05/23 05:26 Creatinine 0.86 mg/dl (0.6-1.4) 09/05/23 05:26 Est Cr Clr Drug Dosing 79.5 ml/min 09/05/23 05:26 Est GFR ( Amer) 109.2 ml/min 09/05/23 05:26 Est GFR (Non-Af Amer) 94.3 ml/min 09/05/23 05:26 BUN/Creatinine Ratio 9.3 (10-20) L 09/05/23 05:26 Glucose 218 mg/dl (70-99(Fasting)) H 09/05/23 05:26 POC Glucose 249 mg/dl (70-99) H 09/05/23 07:22 Lactate 1.8 mmol/L (0.4-2.0) 09/02/23 09:14 Calcium 8.1 mg/dl (8.6-10.3) L 09/05/23 05:26 Phosphorus 2.7 mg/dl (2.5-4.9) 09/04/23 05:25 Magnesium 1.4 mg/dl (1.7-2.4) L 09/05/23 05:26 Total Bilirubin 0.8 mg/dl (0.2-1.0) 09/03/23 05:28 Direct Bilirubin 0.2 mg/dl (0-0.2) 09/03/23 05:28 AST 33 U/L (13-39) 09/03/23 05:28 ALT 22 U/L (7-52) 09/03/23 05:28 Alkaline Phosphatase 211 U/L (34-104) H 09/03/23 05:28 Troponin I High Sens 17.3 pg/ml (0-20) 09/02/23 09:13 B-Natriuretic Peptide 62 pg/ml (0-100) 09/02/23 09:13 Total Protein 6.0 gm/dl (6.0-8.3) D 09/03/23 05:28 Albumin 3.0 gm/dl (3.4-5.0) L 09/03/23 05:28 Procalcitonin 0.42 ng/ml (0-0.5) 09/02/23 09:13 Urine Color Yellow 09/02/23 09:27 Urine Appearance Cloudy (Clear) A 09/02/23 09:27 Urine pH 5.5 (4.5-7.5) 09/02/23 09:27 Ur Specific [place] 1.017 (1.000-1.030) 09/02/23 09:27 Urine Protein Negative (Negative) 09/02/23 09:27 Urine Glucose (UA) Negative (Negative) 09/02/23 09:27 Urine Ketones Negative (Negative) 09/02/23 09:27 Urine Blood Trace (Negative) H 09/02/23 09:27 Urine Nitrite Negative (Negative) 09/02/23 09: Urine Bilirubin Negative (Negative) 09/02/23 09:27 Urine Urobilinogen Negative (Negative) 09/02/23 09:27 Ur Leukocyte Esterase 3+ (Negative) H 09/02/23 09: Urine WBC (Auto) >30 /hpf (0-5) H 09/02/23 09:27 Urine RBC (Auto) 0-4 /hpf (0-4) 09/02/23 09:27 U Hyaline Cast (Auto) 1-5 /lpf (0-5) 09/02/23 09: U Epithel Cells (Auto) 5-10 /lpf (0-5) H 09/02/23 09:27 Urine Bacteria (Auto) Negative (Negative) 09/02/23 09: Urine Yeast Budding (None Prsent) A 09/02/23 09:27 Nasal Screen MRSA (PCR) Negative (Negative) 09/02/23 15:20 Adenovirus (PCR) Not Detected (NotDetected) 09/02/23 09:14 B. pertussis DNA (PCR) Not Detected (NotDetected) 09/02/23 09:14 B.parapertussis DNA PCR Not Detected (NotDetected) 09/02/23 09:14 C. pneumoniae DNA (PCR) Not Detected (NotDetected) 09/02/23 09:14 Coronavirus OC43 (PCR) Not Detected (NotDetected) 09/02/23 09:14 Coronavirus HKU1 (PCR) Not Detected (NotDetected) 09/02/23 09:14 Coronavirus 229E (PCR) Not Detected (NotDetected) 09/02/23 09:14 SARS-CoV-2 (PCR) Not Detected (NotDetected) 09/02/23 09:14 Coronavirus NL63 (PCR) Not Detected (NotDetected) 09/02/23 09:14 Human Metapneumovir PCR Not Detected (NotDetected) 09/02/23 09:14 Influenza Type A (PCR) Not Detected (NotDetected) 09/02/23 09:14 Influenza Type B (PCR) Not Detected (NotDetected) 09/02/23 09:14 M. pneumoniae (PCR) Not Detected (NotDetected) 09/02/23 09:14 Parainfluenza 1 (PCR) Not Detected (NotDetected) 09/02/23 09:14 Parainfluenza 2 (PCR) Not Detected (NotDetected) 09/02/23 09:14 Parainfluenza 3 (PCR) Not Detected (NotDetected) 09/02/23 09:14 Parainfluenza 4 (PCR) Not Detected (NotDetected) 09/02/23 09:14 RSV (PCR) Not Detected (NotDetected) 09/02/23 09:14 Entero/Rhino (PCR) Not Detected (NotDetected) 09/02/23 09:[address] 09/02/23 09:06 CT OF THE HEAD WITHOUT CONTRAST CLINICAL HISTORY: Altered mental status. COMPARISON STUDY: No previous studies for comparison. CT DOSE: 1250.21 mGy.cm TECHNIQUE: Helical axial images of the head were obtained without IV contrast. Automated exposure control was utilized for the study. A dose lowering technique was utilized adhering to the principles of ALARA. FINDINGS: This exam is mildly compromised by motion artifact. Multifocal white matter hypodensities are present. No acute intracranial hemorrhage, midline shift or mass effect is present. The ventricular system is unremarkable. The basal cisterns are patent. No extra-axial collections are present. There are no findings to suggest acute dural sinus thrombosis or acute territorial infarct. No significant calvarial abnormalities are present. Visualized portions of the sinuses and mastoid air cells are clear. IMPRESSION: 1. No acute intracranial hemorrhage or mass effect. Exam mildly compromised by motion artifact. 2. Multifocal white matter hypodensities. These are nonspecific but statistically reflect small vessel disease. ACT 112: Negative or not required by law. Electronically signed by: Shay Souza M.D. 09/02/2023 9:36 AM Chest X-Ray 09/04/23 16:47 XR chest 1V portable HISTORY: 58 years-old Male respiratory distress acute respiratory distress COMPARISON: 09/02/2023 TECHNIQUE: AP view of the chest FINDINGS: Cardiac silhouette is mildly enlarged. Patchy bilateral airspace opacities redemonstrated, progressively worsened within the right upper lung. No pneumothorax or large pleural effusion. Bones appear grossly intact. IMPRESSION: Bilateral airspace opacities, progressed within the right upper lung suggestive of multifocal pneumonia. Continued follow-up recommended. ACT 112: Negative or not required by law. The above report was generated using voice recognition software. It may contain grammatical, syntax or spelling errors. Electronically signed by: Tobias Ramírez M.D. 09/04/2023 5:21 PM (1) Pneumonia Laterality: right Lung location: unspecified part of lung Pneumonia type: due to unspecified organism Qualified Code(s): J18.9 - Pneumonia, unspecified organism
[2023-09-05] MEDS: VANCOMYCIN HCL 1,250 MG in SODIUM CHLORIDE 0.9% 250 ML IV SCH (11:18)
[2023-09-05] MEDS: POTASSIUM CHLORIDE / WTR 10 MEQ/100 ML PLCT IV SCH ×4 (11:26→14:14)
[2023-09-05] MEDS: MAGNESIUM SULFATE / D5W 1 GM/100 ML BAG IV SCH ×2 (12:58→15:43)
[2023-09-05] MEDS ORDERED: SODIUM CHLOR 7% 4 ML NEB NEB SCH (19:00)
[2023-09-06] MEDS: PIPERACILLIN/TAZOBACTAM 4.5 GM in DEXTROSE 5% MINI-B 100 ML IV SCH ×3 (00:27→15:18)
[2023-09-06] MEDS: METOPROLOL TARTRATE 1 MG/ML VIAL IV SCH ×4 (00:27→16:56)
[2023-09-06] MEDS: VANCOMYCIN HCL 1,250 MG in SODIUM CHLORIDE 0.9% 250 ML IV SCH (06:20)
[2023-09-06] MEDS: levETIRAcetam 500 MG in 0.9 % SODIUM CHLORIDE 100 ML IV SCH ×2 (07:32→19:37)
[2023-09-06] MEDS: ENOXAPARIN INJ 40 MG/0.4 ML SYR SQ SCH (07:32)
[2023-09-06] MEDS: GABAPENTIN 800 MG TAB PO SCH ×4 (07:33→22:48)
[2023-09-06] MEDS: SODIUM CHLOR 7% 4 ML NEB NEB SCH ×2 (07:41→19:34)
[2023-09-06] MEDS: ALBUT/IPRATROP 3MG/0.5MG NEB 3 ML VIAL NEB SCH ×2 (07:41→19:35)
[2023-09-06 07:46] LABS: Basophils # (auto) 0.05 K/uL (0.00-0.20); Basophils % (auto) 0.2 %; Eosinophils # (auto) 0.02 K/uL (0.00-0.50); Eosinophils % (auto) 0.1 %; Hematocrit (blood only) 30.6 % (42.0-52.0); Hemoglobin 11.1 g/dl (14.0-18.0); Immature Granulocytes # (auto) 0.06 K/uL (0.01-0.20); Immature Granulocytes % (auto) 0.3 %; Lymphocytes # (auto) 1.22 K/uL (1.20-3.40); Lymphocytes % (auto) 5.9 %; Mean Corpuscular Hemoglobin 33.7 pg (25.0-34.0); Mean Corpuscular Hgb Conc 36.3 g/dL (32.0-36.0); Mean Platelet Volume 10.5 fL (9.4-12.4); Monocytes # (auto) 1.24 K/uL (0.11-0.59); Neutrophils # (auto) 18.07 K/uL (1.40-6.50); Neutrophils % (auto) 87.5 %; Platelet Count 338 K/uL (130-400); RDW Coefficient of Variation 12.1 % (11.5-14.5); RDW Standard Deviation 40.7 fL (36.4-46.3); Red Blood Count 3.29 M/uL (4.70-6.10); White Blood Count 20.66 K/ul (4.8-10.8)
[2023-09-06 07:59] LABS: Calcium 8.7 mg/dl (8.6-10.3); Creatinine Clr Calc Pharmacy 77.4 ml/min; Est GFR (African American) 107.2 ml/min; Est GFR (Non-African American) 92.5 ml/min; Potassium 3.8 mmol/L (3.5-5.1)
[2023-09-06] MEDS: INSULIN ASPART PER UNIT CHARGE SC SCH ×4 (07:59→23:08)
[2023-09-06] MEDS: oxyCODONE HCL IR 5 MG TAB (IMMEDIATE RELEASE) PO SCH ×2 (08:00→22:12)
--- NOTE | 2023-09-06 13:01 | Hospitalist Progress Note ---
Date of Service September 06, 2023 Assessment & Plan (1) Pneumonia: (2) Hypoxia: (3) Acute alteration in mental status: (4) Hypomagnesemia: (5) Diabetes mellitus: (6) Alcohol abuse: (7) Opioid dependence: (8) History of subdural hematoma: Plan This is a 58 y/o male with recent cardiac arrest, CVA, SDH, shock liver, atypical pneumonia and MIKE and a history of DM2, alcohol abuse, chronic pain w/ opioid dependence, COPD, afib, and HFpEF who was sent to the ED from [facility] due to increased lethargy, episode of hypoglycemia, and reported fever. Clinical picture at presentation most consistent with pneumonia as the cause of his lethargy - abnormal chest x-ray, leukocytosis, abnormal lung exam, cough. He is being managed for following: Pneumonia: Metabolic encephalopathy: likely 2/2 above. Acute hypoxic respiratory failure secondary to pneumonia Febrile with Tmax of 39 C. Increasing oxygenation in the last 2 days. Chest x-ray on admission personally reviewed; possible subtle right upper lobe lung airway opacities Repeat chest x-ray done on 09/04 personally reviewed; increasing bilateral opacities. Bedside swallow evaluation was done; patient appears to be aspirating on multiple consistencies. DIPLOMATIC COURIER recommends n.p.o. -Discontinue vancomycin as blood cultures is negative. Continue on Zosyn. We will follow-up on repeat blood culture done on 09/04 -Continue him on airway clearance therapy. -Will decrease his opioids to see if he is lethargy improves; currently on oxycodone extended release 15 mg twice daily instead of 30 mg. Showing signs of improvement. - Monitor and replete electrolytes Goals of care discussed with his daughter at bedside on 09/05. Discussed overall prognosis as patient has aspiration which is a irreversible condition owing to the stroke. Plan is to continue current medical treatment. If patient shows signs of decompensation in the hospitalization; transition to comfort care. If patient shows signs of improvement will get PT OT evaluation and possible rehab placement. Chronic conditions; Hypertensioncurrently oral metoprolol on hold; restarted on IV metoprolol. Seizure disordercontinue on Keppra, seizure prophylaxis Type 2 diabetes mellituscontinue on insulin DVT prophylaxis Lovenox DNR/DNI Time spent evaluating patient, direct bedside care, chart review, placing orders, interpretation of diagnostic studies, discussion with consultants, patient, and family members, as well as other required patient management activities is 60 minutes Please note the above document was generated using voice recognition software. It may contain grammatical, syntax or spelling errors. Any formal questions or concerns about the content, text or information contained within the body of this dictation should be directly addressed to the provider for clarification Admission and Anticipated Discharge Date Admission Date: September 02, 2023 Subjective Patient seen and examined at bedside. He is awake; able to answer to some question. Appears to be comfortable. Oxygen requirement downtrending Review of Systems Review of Systems: All systems reviewed & are unremarkable except as noted in Subjective Physical Exam Physical Exam: GENERAL: Awake, oriented to self. HEENT: No pallor, no icterus. Pupils equal, round and reactive to light. Oral mucosa moist. NECK: No JVD, no neck masses. HEART: S1 and S2 heard. Regular rate and rhythm. No murmur, no gallop. RESPIRATORY SYSTEM:Increase crackles heard in right mid and upper lung mortensen. ABDOMEN: Soft, bowel sounds present, nontender, no distention. CENTRAL NERVOUS SYSTEM:Left hemiparesis; similar to baseline. EXTREMITIES: No edema, no erythema seen. Condom catheter in situ, yellow urine collection noted in the bag. Results & Data Results & Data Vital Signs (Past 12 Hours) Vital Signs Temp Pulse Pulse Resp BP BP Pulse Ox 09/06/23 12:17 99 H 09/06/23 11:52 36.5 C 105 H 18 154/88 H 90 09/06/23 11:51 96 H 09/06/23 08:00 09/06/23 08:00 117 H 09/06/23 07:31 36.5 C 111 H 18 167/94 H 91 09/06/23 07:41 107 H 20 94 09/06/23 06:32 99 H 09/06/23 06:11 120 H 156/89 H 09/06/23 03:00 36.6 C 103 H 20 156/89 H 92 09/06/23 01:02 98 H O2 Del Method O2 Flow Rate 09/06/23 12:17 09/06/23 11:52 Oxymask 4 09/06/23 11:51 09/06/23 08:00 Oxymask 4 09/06/23 08:00 09/06/23 07:31 Oxymask 7 09/06/23 07:41 Oxymask 4 09/06/23 06:32 09/06/23 06:11 09/06/23 03:00 Oxymask 09/06/23 01:02 Laboratory Results Laboratory Results WBC 20.66 K/ul (4.8-10.8) H 09/06/23 07:15 RBC 3.29 M/uL (4.70-6.10) L 09/06/23 07:15 Hgb 11.1 g/dl (14.0-18.0) L 09/06/23 07:15 Hct 30.6 % (42.0-52.0) L 09/06/23 07:15 MCV 93.0 fL (80.0-100.0) 09/06/23 07:15 MCH 33.7 pg (25.0-34.0) 09/06/23 07:15 MCHC 36.3 g/dL (32.0-36.0) H 09/06/23 07:15 RDW Std Deviation 40.7 fL (36.4-46.3) 09/06/23 07:15 RDW Coeff of Kaelyn 12.1 % (11.5-14.5) 09/06/23 07:15 Plt Count 338 K/uL (130-400) 09/06/23 07:15 MPV 10.5 fL (9.4-12.4) 09/06/23 07:15 Immature Gran % (Auto) 0.3 % 09/06/23 07:15 Neut % (Auto) 87.5 % 09/06/23 07:15 Lymph % (Auto) 5.9 % 09/06/23 07:15 [place] % (Auto) 6.0 % 09/06/23 07:15 Eos % (Auto) 0.1 % 09/06/23 07:15 Baso % (Auto) 0.2 % 09/06/23 07:15 Neut # (Auto) 18.07 K/uL (1.40-6.50) H 09/06/23 07:15 Lymph # (Auto) 1.22 K/uL (1.20-3.40) 09/06/23 07:15 [place] # (Auto) 1.24 K/uL (0.11-0.59) H 09/06/23 07:15 Eos # (Auto) 0.02 K/uL (0.00-0.50) 09/06/23 07:15 Baso # (Auto) 0.05 K/uL (0.00-0.20) 09/06/23 07:15 Immature Gran # (Auto) 0.06 K/uL (0.01-0.20) 09/06/23 07:15 Stomatocytes 1+ 09/02/23 09:13 PT 11.5 Seconds (9.0-12.0) 09/02/23 09:13 INR 1.1 (0.9-1.1) 09/02/23 09:13 APTT 25.3 Seconds (21.0-31.0) 09/02/23 09:13 PTT Ratio 0.9 09/02/23 09:13 VBG pH 7.37 (7.36-7.41) 09/02/23 09:14 VBG pCO2 54 mmHg (38-50) H 09/02/23 09:14 VBG pO2 < 20 mmHg 09/02/23 09:14 VBG HCO3 31 mmol/L 09/02/23 09:14 VBG O2 Saturation < 60.0 % 09/02/23 09:14 VBG Base Excess 4.7 mEq/L 09/02/23 09:14 Sodium 138 mmol/L (136-145) 09/06/23 07:15 Potassium 3.8 mmol/L (3.5-5.1) 09/06/23 07:15 Chloride 103 mmol/L (98-107) 09/06/23 07:15 Carbon Dioxide 25 mmol/L (21-32) 09/06/23 07:15 Anion Gap 10 (3-11) 09/06/23 07:15 BUN 9 mg/dl (6-23) 09/06/23 07:15 Creatinine 0.90 mg/dl (0.6-1.4) 09/06/23 07:15 Est Cr Clr Drug Dosing 77.4 ml/min 09/06/23 07:15 Est GFR ( Amer) 107.2 ml/min 09/06/23 07:15 Est GFR (Non-Af Amer) 92.5 ml/min 09/06/23 07:15 BUN/Creatinine Ratio 10.0 (10-20) 09/06/23 07:15 Glucose 237 mg/dl (70-99(Fasting)) H 09/06/23 07:15 POC Glucose 186 mg/dl (70-99) H 09/06/23 11:35 Lactate 1.8 mmol/L (0.4-2.0) 09/02/23 09:14 Calcium 8.7 mg/dl (8.6-10.3) 09/06/23 07:15 Phosphorus 2.7 mg/dl (2.5-4.9) 09/04/23 05:25 Magnesium 1.4 mg/dl (1.7-2.4) L 09/05/23 05:26 Total Bilirubin 0.8 mg/dl (0.2-1.0) 09/03/23 05:28 Direct Bilirubin 0.2 mg/dl (0-0.2) 09/03/23 05:28 AST 33 U/L (13-39) 09/03/23 05:28 ALT 22 U/L (7-52) 09/03/23 05:28 Alkaline Phosphatase 211 U/L (34-104) H 09/03/23 05:28 Troponin I High Sens 17.3 pg/ml (0-20) 09/02/23 09:13 B-Natriuretic Peptide 62 pg/ml (0-100) 09/02/23 09:13 Total Protein 6.0 gm/dl (6.0-8.3) D 09/03/23 05:28 Albumin 3.0 gm/dl (3.4-5.0) L 09/03/23 05:28 Procalcitonin 0.42 ng/ml (0-0.5) 09/02/23 09:13 Urine Color Yellow 09/02/23 09:27 Urine Appearance Cloudy (Clear) A 09/02/23 09:27 Urine pH 5.5 (4.5-7.5) 09/02/23 09:27 Ur Specific [place] 1.017 (1.000-1.030) 09/02/23 09:27 Urine Protein Negative (Negative) 09/02/23 09:27 Urine Glucose (UA) Negative (Negative) 09/02/23 09:27 Urine Ketones Negative (Negative) 09/02/23 09:27 Urine Blood Trace (Negative) H 09/02/23 09:27 Urine Nitrite Negative (Negative) 09/02/23 09:27 Urine Bilirubin Negative (Negative) 09/02/23 09:27 Urine Urobilinogen Negative (Negative) 09/02/23 09:27 Ur Leukocyte Esterase 3+ (Negative) H 09/02/23 09:27 Urine WBC (Auto) >30 /hpf (0-5) H 09/02/23 09:27 Urine RBC (Auto) 0-4 /hpf (0-4) 09/02/23 09:27 U Hyaline Cast (Auto) 1-5 /lpf (0-5) 09/02/23 09:27 U Epithel Cells (Auto) 5-10 /lpf (0-5) H 09/02/23 09:27 Urine Bacteria (Auto) Negative (Negative) 09/02/23 09:27 Urine Yeast Budding (None Prsent) A 09/02/23 09:27 Nasal Screen MRSA (PCR) Negative (Negative) 09/02/23 15:20 Adenovirus (PCR) Not Detected (NotDetected) 09/02/23 09:14 B. pertussis DNA (PCR) Not Detected (NotDetected) 09/02/23 09:14 B.parapertussis DNA PCR Not Detected (NotDetected) 09/02/23 09:14 C. pneumoniae DNA (PCR) Not Detected (NotDetected) 09/02/23 09:14 Coronavirus OC43 (PCR) Not Detected (NotDetected) 09/02/23 09:14 Coronavirus HKU1 (PCR) Not Detected (NotDetected) 09/02/23 09:14 Coronavirus 229E (PCR) Not Detected (NotDetected) 09/02/23 09:14 SARS-CoV-2 (PCR) Not Detected (NotDetected) 09/02/23 09:14 Coronavirus NL63 (PCR) Not Detected (NotDetected) 09/02/23 09:14 Human Metapneumovir PCR Not Detected (NotDetected) 09/02/23 09:14 Influenza Type A (PCR) Not Detected (NotDetected) 09/02/23 09:14 Influenza Type B (PCR) Not Detected (NotDetected) 09/02/23 09:14 M. pneumoniae (PCR) Not Detected (NotDetected) 09/02/23 09:14 Parainfluenza 1 (PCR) Not Detected (NotDetected) 09/02/23 09:14 Parainfluenza 2 (PCR) Not Detected (NotDetected) 09/02/23 09:14 Parainfluenza 3 (PCR) Not Detected (NotDetected) 09/02/23 09:14 Parainfluenza 4 (PCR) Not Detected (NotDetected) 09/02/23 09:14 RSV (PCR) Not Detected (NotDetected) 09/02/23 09:14 Entero/Rhino (PCR) Not Detected (NotDetected) 09/02/23 09:[address] 09/02/23 09:06 CT OF THE HEAD WITHOUT CONTRAST CLINICAL HISTORY: Altered mental status. COMPARISON STUDY: No previous studies for comparison. CT DOSE: 1250.21 mGy.cm TECHNIQUE: Helical axial images of the head were obtained without IV contrast. Automated exposure control was utilized for the study. A dose lowering technique was utilized adhering to the principles of ALARA. FINDINGS: This exam is mildly compromised by motion artifact. Multifocal white matter hypodensities are present. No acute intracranial hemorrhage, midline shift or mass effect is present. The ventricular system is unremarkable. The ba alin cisterns are patent. No extra-axial collections are present. There are no findings to suggest acute dural sinus thrombosis or acute territorial infarct. No significant calvarial abnormalities are present. Visualized portions of the sinuses and mastoid air cells are clear. IMPRESSION: 1. No acute intracranial hemorrhage or mass effect. Exam mildly compromised by motion artifact. 2. Multifocal white matter hypodensities. These are nonspecific but statistically reflect small vessel disease. ACT 112: Negative or not required by law. Electronically signed by: Shay Souza M.D. 09/02/2023 9:36 AM Chest X-Ray 09/04/23 16:47 XR chest 1V portable HISTORY: 58 years-old Male respiratory distress acute respiratory distress COMPARISON: 09/02/2023 TECHNIQUE: AP view of the chest FINDINGS: Cardiac silhouette is mildly enlarged. Patchy bilateral airspace opacities redemonstrated, progressively worsened within the right upper lung. No pne umothorax or large pleural effusion. Bones appear grossly intact. IMPRESSION: Bilateral airspace opacities, progressed within the right upper lung suggestive of multifocal pneumonia. Continued follow-up recommended. ACT 112: Negative or not required by law. The above report was generated using voice recognition software. It may contain grammatical, syntax or spelling errors. Electronically signed by: Tobias Ramírez M.D. 09/04/2023 5:21 PM (1) Pneumonia Laterality: right Lung location: unspecified part of lung Pneumonia type: due to unspecified organism Qualified Code(s): J18.9 - Pneumonia, unspecified organism
[2023-09-06] MEDS ORDERED: METOPROLOL TARTRATE 1 MG/ML VIAL IV STA (23:01)
[2023-09-06] MEDS ORDERED: VANCOMYCIN CONSULT ACTIVE PRN (23:02)
[2023-09-06] MEDS ORDERED: VANCOMYCIN HCL 1,000 MG in SODIUM CHLORIDE 0.9% 250 ML IV SCH (23:15)
[2023-09-06] MEDS ORDERED: LEVALBUTEROL 1.25MG/0.5ML NEB NEB SCH (23:30)
[2023-09-06] MEDS ORDERED: LEVALBUTEROL 1.25 MG/3 ML NEB ONE (23:47)
[2023-09-06 23:48] LABS: Hematocrit (blood only) 31.8 % (42.0-52.0); Hemoglobin 11.2 g/dl (14.0-18.0); Mean Corpuscular Hemoglobin 33.4 pg (25.0-34.0); Mean Corpuscular Hgb Conc 35.2 g/dL (32.0-36.0); Mean Corpuscular Volume 94.9 fL (80.0-100.0); Mean Platelet Volume 10.1 fL (9.4-12.4); Platelet Count 312 K/uL (130-400); RDW Coefficient of Variation 12.6 % (11.5-14.5); RDW Standard Deviation 43.2 fL (36.4-46.3); Red Blood Count 3.35 M/uL (4.70-6.10); White Blood Count 22.39 K/ul (4.8-10.8)
[2023-09-06 23:55] LABS: iSTAT Allen Test Pass; iSTAT Art Bld Gas pCO2 Correct 45 mmHg (35-46); iSTAT Art Bld Gas pH Corrected 7.313 (7.35-7.45); iSTAT Arterial Blood Gas HCO3 23 meg/L (19-24); iSTAT Arterial Blood Gas pCO2 44 mmHg (35-46); iSTAT Arterial Blood Gas pH 7.32 (7.35-7.45); iSTAT Arterial Blood Gas pO2 88 mmHg (80-95); iSTAT Arterial Blood Gas pO2 C 90; iSTAT Carbon Dioxide 24 mmol/L (24-31); iSTAT FiO2 100 %; iSTAT Hematocrit 29 % (42-52); iSTAT Hemoglobin 9.9 g/dl (14.0-18.0); iSTAT Potassium 3.2 mmol/L (3.3-5.0); iSTAT Site R Radial; iSTAT Sodium 141 mmol/L (135-144)
[2023-09-06 23:58] LABS: Albumin Level 3.3 gm/dl (3.4-5.0); BUN Creatinine Ratio 15.1 (10-20); Bilirubin,Total 0.9 mg/dl (0.2-1.0); Calcium 8.6 mg/dl (8.6-10.3); Creatinine Clr Calc Pharmacy 74.9 ml/min; Est GFR (African American) 103.1 ml/min; Est GFR (Non-African American) 88.9 ml/min; Globulin 3.3 gm/dl (2.5-4.0); Magnesium 1.3 mg/dl (1.7-2.4); Potassium 3.4 mmol/L (3.5-5.1); Total Protein 6.6 gm/dl (6.0-8.3)
[2023-09-07] MEDS ORDERED: MEROPENEM 500 MG in SYRINGE 0 ML IV SCH
[2023-09-07] MEDS ORDERED: VANCOMYCIN HCL 1,250 MG in SODIUM CHLORIDE 0.9% 250 ML IV SCH
[2023-09-07 00:18] LABS: Basophils # (auto) 0.06 K/uL (0.00-0.20); Basophils % (auto) 0.3 %; Eosinophils # (auto) 0.19 K/uL (0.00-0.50); Eosinophils % (auto) 0.8 %; Immature Granulocytes % (auto) 0.4 %; Lymphocytes % (auto) 1.8 %; Monocytes # (auto) 0.86 K/uL (0.11-0.59); Monocytes % (auto) 3.8 %; Neutrophils # (auto) 20.78 K/uL (1.40-6.50); Neutrophils % (auto) 92.9 %
[2023-09-07] MEDS: METOPROLOL TARTRATE 1 MG/ML VIAL IV SCH (00:31)
--- NOTE | 2023-09-07 08:24 | Death Pronouncement Note ---
Date of Service September 07, 2023 Pronouncement Note Admission Date September 02, 2023 Date and Time of Date of : 09/07/23 Time of : 03:23 Additional Data Confirmation of : no pulse, no respirations, no heart sounds and pupils fixed and dilated Family: attempt made Attending physician: Melchor Bryan MD
--- NOTE | 2023-09-07 10:48 | Communication Note ---
Date of Service: September 07, 2023 Last night patient became hypoxic oxygen sats dropping. Was placed on 100%NRB and I was notified. Saw patient. He was lethargic and tachypneic and tachyc ardia.Received a dose of iv Lopressor(patient getting iv Lopressor scheduled dose). Placed on bipap, ordered abg,labs and cxr. changed abx to meropenem and iv vanco.CXR showed whitening of left lung. reviewed images with critical care. Mostly seemed aspirated. Patient is DNR/DNI. Ordered percussion vest. nebs with hypertonic saline. Called and daughter and notified the events. . Told daughter generally we intubated patient with current condition and she confirms DNR/DNI status.Patient initially oxygenation improved with bipap but later became again hypoxic and ceased to breathe at 3:23am today Sep 07 2023. Called daughter to notify about patient passing away but was not able to reach her.Notified am provider .
--- NOTE | 2023-09-07 11:39 | XRay Report ---
XR chest 1V portable CLINICAL HISTORY: hypoxia TECHNIQUE: Single frontal radiograph of the chest was obtained. Comparison: Comparison is made to chest radiograph 09/04/2023 FINDINGS: No lines and tubes are seen. Leftward mediastinal shift is seen, cardiac borders are obscured. There is complete opacification of the left hemithorax with a few air bronchograms remaining. Right-sided a irspace opacities are seen. No right pleural effusion is seen. IMPRESSION: Leftward mediastinal shift is seen with underlying opacification, likely represent atelectasis with o r without post aspiration/pneumonia. Right lung airspace opacities likely represent worsening of foca l pneumonia. A left pleural effusion cannot be entirely excluded. ACT 112: Negative or not required by law. Electronically signed by: Adithya Barker M.D. 09/07/2023 11:38 AM
--- NOTE | 2023-09-11 13:55 | Discharge Summary ---
Date of Service September 07, 2023 Admission HPI Per Admitting Provider This is a 58 y/o male with recent cardiac arrest, CVA, SDH, shock liver, atypical pneumonia and MIKE and a history of DM2, alcohol abuse, chronic pain w/ opioid dependence, COPD, afib, and HFpEF who was sent to the ED from [facility] due to increased lethargy, episode of hypoglycemia, and reported fever. Pt is unable to provide any history so the records from [facility] were extensively reviewed. Pt reportedly presented to the [facility] on 08/10/23 after cardiac arrest in the field, achieved ROSC with two rounds of CPR. Work-up revealed shock liver (AST 7200, ALT 1700), MIKE, SDH, atypical pneumonia, and bilateral multifocal infarcts of the brain. He had a complicated three week ICU course where he was initially on pressors but was weaned off, was given IV antibiotics including a full course for aspiration pneumonia, and was evaluated by neuro and started on Keppra for seizure prophylaxis. Urine drug screen was positive for opiates and methamphetamine. He was given narcan x 1 dose but only transient res ponse so it was unclear how much the opiates contributed to his condition - of note, pt is on chronic oxycodone. Pt was previously on Eliquis for PAF but this is currently on hold due to SDH. He was ultimately diagnosed with critical illness myopathy and transferred to [facility] for inpatient rehab on 08/29. Since being at [facility], they have noted progressive lethargy. Early this morning, he had an episode of hypoglycemia (BSG 50) and reportedly developed a fever so was referred to the ED for additional evaluation. He has not been febrile in the ED. Admission Exam Per Admitting Provider Lying in bed without any apparent distress Hemodynamically stable with a pulse of 103/min and afebrile Chestdecreased breath sounds bilaterally with coarse crackles Heart-S1-S2, regular Abdomen-soft, bowel sound present Extremities-no edema [employer]-alert and awake, minimally verbal, less movement of the left upper extremity compared with all other extremities, generally very weak and lethargy Principal Diagnosis Aspiration pneumonia Respiratory failure with hypoxia Discharge Exam Discharge exam was not performed. Discharge Data Allergies Allergy/AdvReac Type Severity Reaction Status Date / Time ketorolac Allergy Severe seizure Verified 09/02/23 12:27 propoxyphene Allergy Severe didn't Verified 09/02/23 12:27 wake up until next day tramadol Allergy Severe seizure Verified 09/02/23 12:27 acetaminophen Allergy Unknown Unknown Unverified 09/02/23 12:27 [From Shirint-N 100] meperidine Allergy Unknown loose bn Verified 09/02/23 12:27 oxycodone AdvReac Intermediate face Verified 09/02/23 12:27 blotchy, nausea Consultations 09/02/23 10:36 ED Decision to Admit Stat Ordered Studies 09/02/23 09:06 CT head/brain wo con Stat Hospital Course (1) Pneumonia: (2) Hypoxia: (3) Acute alteration in mental status: (4) Hypomagnesemia: (5) Diabetes mellitus: (6) Alcohol abuse: (7) Opioid dependence: (8) History of subdural hematoma: Plan This is a 58 y/o male with recent cardiac arrest, CVA, SDH, shock liver, atypical pneumonia and MIKE and a history of DM2, alcohol abuse, chronic pain w/ opioid dependence, COPD, afib, and HFpEF who was sent to the ED from [facility] due to increased lethargy, episode of hypoglycemia, and reported fever. Clinical picture at presentation most consistent with pneumonia as the cause of his lethargy - abnormal chest x-ray, leukocytosis, abnormal lung exam, cough. Patient was treated with IV antibiotics, airway clearance therapy throughout the hospitalization showing some improvement. On September 07, patient became hypoxic. Stat chest x-ray showed opacification of the left lung. Patient was supported with BiPAP and supplemental oxygen. Patient was DNR/DNI which was confirmed with her daughter. Patient at 3:23 AM. Please note the above document was generated using voice recognition software. It may contain grammatical, syntax or spelling errors. Any formal questions or concerns about the content, text or information contained within the body of this dictation should be directly addressed to the provider for clarification Total Time Total Time Spent Total Time Spent (In Minutes): 45 Total Time Includes: Examination of the Patient, Discharge Planning, Medication Reconciliation, Communication With Other Providers and Other Discharge Plan Discharge Items Patient Disposition: Other Date/Time: 09/07/23 03:23
== END 2023-09-07 05:39 | disposition expired | DRG 177 ==
LOC: ED 08:58 → EDINP 10:46 → SUATTDRO 10:46 → 2S 14:23